=== PATIENT | male | born 1925 | race Caucasian/White ===

== ENCOUNTER 2016-08-21 22:50 | Emergency (ER) | payer MEDICARE, OTHER ==
[2016-08-21] MEDS ORDERED: SODIUM CHLORIDE 0.9% 500 ML IV STA (23:24)
[2016-08-21] MEDS ORDERED: SODIUM CHLORIDE 0.9% 1,000 ML IV STA (23:24)
[2016-08-21] MEDS ORDERED: ONDANSETRON 4 MG/2 ML VIAL IVP STA (23:25)
--- NOTE | 2016-08-21 23:27 | ED ---
Abdominal Pain HPI - General Chief Complaint: Abdominal Pain Stated Complaint: abd pain Time Seen by Provider: 08/21/16 23:15 Source: patient, RN notes reviewed Mode of arrival: wheelchair Limitations: no limitations - History of Present Illness Initial Comments: This is a 89-year-old male history of prior episodes of bowel obstruction and constipation who complains of constipation or last week or so he states he took citrate of magnesium early this morning LAD was passed some liquid. He complains some intermittent crampy abdominal pain nausea sweats generalized weakness he also states she's has some decrease oral intake recently. He denies any rhinorrhea sore throat cough or phlegm production no dysuria MD Complaint: abdominal pain, other - Related Data Home Medications Medication Instructions Recorded Confirmed Ergocalciferol [Vitamin D2 50,000 unit PO Q14D 12/10/14 04/03/16 (DRISDOL)] Ranitidine HCl [Zantac] 300 mg PO QAM 12/10/14 04/03/16 Simvastatin [Zocor] 40 mg PO HS 12/10/14 04/03/16 Hydrocodone/Acetaminophen 1 tab PO Q4H PRN 07/21/15 04/03/16 [Hydrocodon-Acetaminophn 10-325] ALPRAZolam [Xanax] 0.5 mg PO BID PRN 03/24/16 04/03/16 Loratadine-Pseudoeph 10-240 mg 1 tab PO DAILY PRN 03/24/16 04/03/16 [Claritin-D 24 Hr] Meclizine [Antivert] 12.5 mg PO TID PRN 03/24/16 04/03/16 Methadone [Dolophine] 5 mg PO Q12HR 04/01/16 04/03/16 Previous Rx's Medication Instructions Recorded Lactulose 10 gm PO DAILY #500 ml 04/03/16 Allergies Allergy/AdvReac Type Severity Reaction Status Date / Time azithromycin Allergy Intermediate shaky and Verified 08/21/16 23:02 cold, rash and abdominal pain morphine Allergy Intermediate Nausea & Verified 08/21/16 23:02 Vomiting erythromycin base Allergy Mild Rash/Hives Verified 08/21/16 23:02 esomeprazole magnesium Allergy Mild Rash/Hives Verified 08/21/16 23:02 [From Nexium] omeprazole [From Prilosec] Allergy Mild Rash/Hives Verified 08/21/16 23:02 omeprazole magnesium Allergy Mild Rash/Hives Verified 08/21/16 23:02 [From [facility]] Review of Systems ROS Statement: Those systems with pertinent positive or pertinent negative responses have been documented in the HPI. ROS Other: All systems not noted in ROS Statement are negative. Past Medical History Past Medical History: Cancer, GERD/Reflux, GI Bleed, Hyperlipidemia, Musculoskeletal Disorder, Osteoarthritis (OA), Pneumonia Additional Past Medical History / Comment(s): hx bleeding ulcers, non hodgkins lymphoma, chronic low back pain, scoliosis, unsteady gait, dizzyness, GERD, osteoarthritis. History of Any Multi-Drug Resistant Organisms: None Reported Past Surgical History: Adenoidectomy, Back Surgery, Cholecystectomy, Joint Replacement, Orthopedic Surgery, Tonsillectomy Additional Past Surgical History / Comment(s): 12/15/14 Thoracic laminectomy T11 -12 with placement of nerve stimulator. Bilateral cataracts removed with lens implants, nava knee and shoulder replacements, left hand carpal tunnel, rt thumb joint replacement Past Anesthesia/Blood Transfusion Reactions: No Reported Reaction Past Psychological History: Anxiety Additional Psychological History / Comment(s): Pt resides with his spouse. He is independent with his ADLs. He uses a walker or a cane. He does not drive. His drives him to appt. He has no home care agency. Smoking Status: Former smoker Past Alcohol Use History: None Reported Past Drug Use History: None Reported - Past Family History Father Family Medical History: Cancer (Father at age of 71 from bladder cancer) Mother Family Medical History: Myocardial Infarction ([place]) (Mother at age of 59 from myocardial infarction) Brother(s) Family Medical History: Myocardial Infarction ([place]) (Patient had a brother who from an [place]) Sister(s) Family Medical History: No Reported History (Patient has 2 sisters who are alive and no major medical problems) Daughter(s) Family Medical History: No Reported History (Patient has 3 daughters no major medical problems) Son(s) Family Medical History: No Reported History (Patient has one son no major medical problems) General Exam - General Exam Comments Initial Comments: This is a well-developed well-nourished awake alert oriented x 3 male Limitations: no limitations General appearance: alert, in no apparent distress Head exam: Present: atraumatic, normocephalic, normal inspection Eye exam: Present: normal appearance, PERRL, EOMI. Absent: scleral icterus, conjunctival injection, periorbital swelling ENT exam: Present: mucous membranes dry Neck exam: Present: normal inspection. Absent: tenderness, meningismus, lymphadenopathy Respiratory exam: Present: normal lung sounds bilaterally. Absent: respiratory distress, wheezes, rales, rhonchi, stridor Cardiovascular Exam: Present: regular rate, normal rhythm, normal heart sounds. Absent: systolic murmur, diastolic murmur, rubs, gallop, clicks GI/Abdominal exam: Present: soft, normal bowel sounds. Absent: distended, tenderness, guarding, rebound, rigid Extremities exam: Present: normal inspection, full ROM, normal capillary refill. Absent: tenderness, pedal edema, joint swelling, calf tenderness Back exam: Present: normal inspection Neurological exam: Present: alert, oriented X3, CN II-XII intact Psychiatric exam: Present: normal affect, normal mood Skin exam: Present: warm, dry, intact, normal color. Absent: rash Course Vital Signs 08/21/16 08/22/16 23:02 00:02 Temperature 98.9 F 98.2 F Pulse Rate 68 72 Respiratory 16 18 Rate Blood Pressure 131/64 125/66 O2 Sat by Pulse 97 96 Oximetry Medical Decision Making - Medical Decision Making The patient is feeling improved I did discuss findings with him and his the x-ray does not show any evidence of obstruction he has had decreased oral intake recently this is likely part of the cause her his "constipation" he is follow-up with Dr. Hendrix and return when necessary increase his oral fluids results also a suggestion - Lab Data Result diagrams: 08/21/16 23:25 08/21/16 23:25 Lab Results 08/21/16 08/21/16 08/21/16 Range/Units 23:25 23:25 23:54 WBC 6.4 (3.8-10.6) k/uL RBC 4.26 L (4.30-5.90) m/uL Hgb 13.6 (13.0-17.5) gm/dL Hct 41.8 (39.0-53.0) % MCV 98.0 (80.0-100.0) fL MCH 31.9 (25.0-35.0) pg MCHC 32.5 (31.0-37.0) g/dL RDW 13.1 (11.5-15.5) % Plt Count 194 (150-450) k/uL Neutrophils % 64 % Lymphocytes % 26 % Monocytes % 5 % Eosinophils % 2 % Basophils % 1 % Neutrophils # 4.1 (1.3-7.7) k/uL Lymphocytes # 1.7 (1.0-4.8) k/uL Monocytes # 0.3 (0-1.0) k/uL Eosinophils # 0.2 (0-0.7) k/uL Basophils # 0.0 (0-0.2) k/uL Sodium 135 L (137-145) mmol/L Potassium 4.4 (3.5-5.1) mmol/L Chloride 98 (98-107) mmol/L Carbon Dioxide 26 (22-30) mmol/L Anion Gap 11 mmol/L BUN 17 (9-20) mg/dL Creatinine 0.90 (0.66-1.25) mg/dL Est GFR (MDRD) Af Amer >60 (>60 ml/min/1.73 sqM) Est GFR (MDRD) Non-Af >60 (>60 ml/min/1.73 sqM) Glucose 94 (74-99) mg/dL Calcium 9.2 (8.4-10.2) mg/dL Total Bilirubin 0.6 (0.2-1.3) mg/dL AST 41 (17-59) U/L ALT 35 (21-72) U/L Alkaline Phosphatase 71 (38-126) U/L Total Protein 7.3 (6.3-8.2) g/dL Albumin 4.3 (3.5-5.0) g/dL Amylase 49 (30-110) U/L Lipase 19 L (23-300) U/L Urine Color Light Yellow Urine Appearance Clear (Clear) Urine pH 7.0 (5.0-8.0) Ur Specific [place] 1.004 (1.001-1.035) Urine Protein Negative (Negative) Urine Glucose (UA) Negative (Negative) Urine Ketones Trace H (Negative) Urine Blood Trace H (Negative) Urine Nitrite Negative (Negative) Urine Bilirubin Negative (Negative) Urine Urobilinogen <2.0 (<2.0) mg/dL Ur Leukocyte Esterase Negative (Negative) Urine RBC 1 (0-5) /hpf Urine WBC <1 (0-5) /hpf Influenza Type A RNA (Not Detectd) Influenza Type B (PCR) (Not Detectd) 08/21/16 Range/Units 23:55 WBC (3.8-10.6) k/uL RBC (4.30-5.90) m/uL Hgb (13.0-17.5) gm/dL Hct (39.0-53.0) % MCV (80.0-100.0) fL MCH (25.0-35.0) pg MCHC (31.0-37.0) g/dL RDW (11.5-15.5) % Plt Count (150-450) k/uL Neutrophils % % Lymphocytes % % Monocytes % % Eosinophils % % Basophils % % Neutrophils # (1.3-7.7) k/uL Lymphocytes # (1.0-4.8) k/uL Monocytes # (0-1.0) k/uL Eosinophils # (0-0.7) k/uL Basophils # (0-0.2) k/uL Sodium (137-145) mmol/L Potassium (3.5-5.1) mmol/L Chloride (98-107) mmol/L Carbon Dioxide (22-30) mmol/L Anion Gap mmol/L BUN (9-20) mg/dL Creatinine (0.66-1.25) mg/dL Est GFR (MDRD) Af Amer (>60 ml/min/1.73 sqM) Est GFR (MDRD) Non-Af (>60 ml/min/1.73 sqM) Glucose (74-99) mg/dL Calcium (8.4-10.2) mg/dL Total Bilirubin (0.2-1.3) mg/dL AST (17-59) U/L ALT (21-72) U/L Alkaline Phosphatase (38-126) U/L Total Protein (6.3-8.2) g/dL Albumin (3.5-5.0) g/dL Amylase (30-110) U/L Lipase (23-300) U/L Urine Color Urine Appearance (Clear) Urine pH (5.0-8.0) Ur Specific [place] (1.001-1.035) Urine Protein (Negative) Urine Glucose (UA) (Negative) Urine Ketones (Negative) Urine Blood (Negative) Urine Nitrite (Negative) Urine Bilirubin (Negative) Urine Urobilinogen (<2.0) mg/dL Ur Leukocyte Esterase (Negative) Urine RBC (0-5) /hpf Urine WBC (0-5) /hpf Influenza Type A RNA Not Detected (Not Detectd) Influenza Type B (PCR) Not Detected (Not Detectd) - Radiology Data Radiology results: report reviewed (I did review the x-ray and report no acute findings), image reviewed Disposition Clinical Impression: Constipation, Dehydration Disposition: HOME SELF-CARE Condition: Good Instructions: Constipation (ED), Obstipation (ED), Dehydration (ED)
[2016-08-21 23:38] LABS: Basophils % (A) 1 %; CH 31.8; CHCM 32.6; Eosinophils # (A) 0.2 k/uL (0-0.7); Eosinophils % (A) 2 %; HCT 41.8 % (39.0-53.0); HDW 2.11; HGB 13.6 gm/dL (13.0-17.5); Luc # (Auto) 0.16; Luc % (Auto) 3; Lymphocytes # (A) 1.7 k/uL (1.0-4.8); Lymphocytes % (A) 26 %; MCH 31.9 pg (25.0-35.0); MCHC 32.5 g/dL (31.0-37.0); Monocytes # (A) 0.3 k/uL (0-1.0); Monocytes % (A) 5 %; Neutrophils # (A) 4.1 k/uL (1.3-7.7); Neutrophils % (A) 64 %; RBC 4.26 m/uL (4.30-5.90); RDW 13.1 % (11.5-15.5); WBC 6.4 k/uL (3.8-10.6); WBC (Perox) 6.64
[2016-08-21] MEDS ORDERED: KETOROLAC 30 MG/ML 1 ML VIAL IVP STA (23:43)
[2016-08-21 23:45] LABS: ALT 35 U/L (21-72); AST 41 U/L (17-59); Alkaline Phosphatase 71 U/L (38-126); Amylase 49 U/L (30-110); Anion Gap 11 mmol/L; Blood Urea Nitrogen 17 mg/dL (9-20); Calcium 9.2 mg/dL (8.4-10.2); Carbon Dioxide 26 mmol/L (22-30); Chloride 98 mmol/L (98-107); Glucose 94 mg/dL (74-99); Non-African American GFR(MDRD) >60 (>60 ml/min/1.73 sqM); Potassium 4.4 mmol/L (3.5-5.1); Sodium 135 mmol/L (137-145); Total Bilirubin 0.6 mg/dL (0.2-1.3); Total Protein 7.3 g/dL (6.3-8.2)
[2016-08-22] MEDS ORDERED: SODIUM CHLORIDE 0.9% 500 ML IV ONE (00:01)
[2016-08-22 00:03] VITALS: RESP 18
[2016-08-22 00:03] LABS: Appearance,Urine Clear (Clear); Bilirubin,Urine Negative (Negative); Glucose,Urine (UA) Negative (Negative); Ketones,Urine Trace (Negative); Leukocyte Esterase,Urine Negative (Negative); Nitrite,Urine Negative (Negative); Particle Count 478; Protein,Urine Negative (Negative); RBC,Urine 1 /hpf (0-5); Specific Gravity,Urine 1.004 (1.001-1.035); UA Billing (MACRO vs. MICRO) MICRO; Urobilinogen,Urine <2.0 mg/dL (<2.0); WBC,Urine <1 /hpf (0-5)
--- NOTE | 2016-08-22 00:20 | XR ---
EXAM: XR Abdomen, 1 View. CLINICAL HISTORY: Reason: abdominal pain TECHNIQUE: Frontal supine view of the abdomen/pelvis. COMPARISON: [facility] on 04/01/2016 FINDINGS: Abdomen: Nonobstructive bowel gas pattern. Paucity of bowel gas in the left lower quadrant. No free air. Bones: Degenerative changes of the spine and dextroconvex scoliosis. Degenerative changes of the hips. Soft tissues: Epidural spinal catheter with battery pack projected over the left iliac bone. Lower chest: Normal. IMPRESSION: No acute abnormality.
[2016-08-22 01:16] VITALS: BP 121/62; PULSE 78; TEMP 98
== END 2016-08-22 01:16 | disposition home or self-care (01) ==
LOC: EC 22:50
DX: K59.00 Constipation, unspecified (principal); E86.0 Dehydration; R11.0 Nausea; R10.9 Unspecified abdominal pain; K21.9 Gastro-esophageal reflux disease without esophagitis; M19.90 Unspecified osteoarthritis, unspecified site; E78.5 Hyperlipidemia, unspecified; Z87.891 Personal history of nicotine dependence; Z79.899 Other long term (current) drug therapy; Z88.1 Allergy status to other antibiotic agents; Z88.8 Allergy status to other drugs, medicaments and biological substances; Z88.5 Allergy status to narcotic agent; Z90.49 Acquired absence of other specified parts of digestive tract
CPT/HCPCS: 36415; 80053; 82150; 83690; 85025; 81001; 87502; 74000; 99284; 96374; 96375; 96361 ×2; J2405; J1885

== ENCOUNTER 2016-08-30 22:15 | Inpatient (IN) | payer MEDICARE, OTHER ==
[2016-08-30] MEDS ORDERED: SODIUM CHLORIDE 0.9% 500 ML IV STA (22:21)
[2016-08-30] MEDS ORDERED: SODIUM CHLORIDE 0.9% 1,000 ML IV STA (22:21)
[2016-08-30] MEDS ORDERED: ACETAMINOPHEN TAB 325 MG TAB PO STA (22:22)
--- NOTE | 2016-08-30 22:30 | ED ---
Fever HPI - General Chief Complaint: Fever Stated Complaint: fever, nausea Time Seen by Provider: 08/30/16 22:15 Source: patient, RN notes reviewed Mode of arrival: EMS Limitations: no limitations - History of Present Illness Initial Comments: This is a 89-year-old male was brought in by EMS for evaluation for fever generalized weakness and not feeling well he placed some lightheadedness dizziness apparently he is dizzy quite often. His had a similar illness his began this morning. He should decrease oral intake no chest pain he has nausea noted diarrhea no vomiting he is coughing up phlegm but he does not know what color. He does have a history of non-Hodgkin's lymphoma and does have a stimulator for his low back. Per EMS his temporal temperature is 100F initially a pulse ox of 93%. He does admit to decreased oral intake today MD Complaint: fever, malaise, weakness - Related Data Home Medications Medication Instructions Recorded Confirmed Ergocalciferol [Vitamin D2 50,000 unit PO Q14D 12/10/14 08/30/16 (DRISDOL)] Ranitidine HCl [Zantac] 300 mg PO QAM 12/10/14 08/30/16 Simvastatin [Zocor] 40 mg PO HS 12/10/14 08/30/16 Hydrocodone/Acetaminophen 1 tab PO Q4H PRN 07/21/15 08/30/16 [Hydrocodon-Acetaminophn 10-325] ALPRAZolam [Xanax] 0.5 mg PO BID PRN 03/24/16 08/30/16 Loratadine-Pseudoeph 10-240 mg 1 tab PO DAILY PRN 03/24/16 08/30/16 [Claritin-D 24 Hr] Meclizine [Antivert] 12.5 mg PO TID PRN 03/24/16 08/30/16 Methadone [Dolophine] 5 mg PO BID 04/01/16 08/30/16 Allergies Allergy/AdvReac Type Severity Reaction Status Date / Time azithromycin Allergy Intermediate shaky and Verified 08/30/16 23:01 cold, rash and abdominal pain morphine Allergy Intermediate Nausea & Verified 08/30/16 23:01 Vomiting erythromycin base Allergy Mild Rash/Hives Verified 08/30/16 23:01 esomeprazole magnesium Allergy Mild Rash/Hives Verified 08/30/16 23:01 [From Nexium] omeprazole [From Prilosec] Allergy Mild Rash/Hives Verified 08/30/16 23:01 omeprazole magnesium Allergy Mild Rash/Hives Verified 08/30/16 23:01 [From Prilosec] Review of Systems ROS Statement: Those systems with pertinent positive or pertinent negative responses have been documented in the HPI. ROS Other: All systems not noted in ROS Statement are negative. Past Medical History Past Medical History: Cancer, GERD/Reflux, GI Bleed, Hyperlipidemia, Musculoskeletal Disorder, Osteoarthritis (OA), Pneumonia Additional Past Medical History / Comment(s): hx bleeding ulcers, non hodgkins lymphoma, chronic low back pain, scoliosis, unsteady gait, dizzyness, GERD, osteoarthritis. History of Any Multi-Drug Resistant Organisms: None Reported Past Surgical History: Adenoidectomy, Back Surgery, Cholecystectomy, Joint Replacement, Orthopedic Surgery, Tonsillectomy Additional Past Surgical History / Comment(s): 12/15/14 Thoracic laminectomy T11 -12 with placement of nerve stimulator. Bilateral cataracts removed with lens implants, nava knee and shoulder replacements, left hand carpal tunnel, rt thumb joint replacement Past Anesthesia/Blood Transfusion Reactions: No Reported Reaction Past Psychological History: Anxiety Additional Psychological History / Comment(s): Pt resides with his spouse. He is independent with his ADLs. He uses a walker or a cane. He does not drive. His drives him to appt. He has no home care agency. Smoking Status: Former smoker Past Alcohol Use History: None Reported Past Drug Use History: None Reported - Past Family History Father Family Medical History: Cancer (Father at age of 71 from bladder cancer) Mother Family Medical History: Myocardial Infarction ([place]) (Mother at age of 59 from myocardial infarction) Brother(s) Family Medical History: Myocardial Infarction ([place]) (Patient had a brother who from an [place]) Sister(s) Family Medical History: No Reported History (Patient has 2 sisters who are alive and no major medical problems) Daughter(s) Family Medical History: No Reported History (Patient has 3 daughters no major medical problems) Son(s) Family Medical History: No Reported History (Patient has one son no major medical problems) General Exam - General Exam Comments Initial Comments: This is a well-developed well-nourished lethargic appearing male he is awake alert oriented 3 Limitations: no limitations General appearance: alert, in no apparent distress Head exam: Present: atraumatic, normocephalic, normal inspection Eye exam: Present: normal appearance, PERRL, EOMI. Absent: scleral icterus, conjunctival injection, periorbital swelling ENT exam: Present: mucous membranes dry Neck exam: Present: normal inspection. Absent: tenderness, meningismus, lymphadenopathy Respiratory exam: Present: rhonchi (Some evidence of right lower lobe rhonchi), decreased breath sounds Cardiovascular Exam: Present: regular rate, normal rhythm, normal heart sounds. Absent: systolic murmur, diastolic murmur, rubs, gallop, clicks GI/Abdominal exam: Present: soft, normal bowel sounds. Absent: distended, tenderness, guarding, rebound, rigid exam: Absent: circumcision Extremities exam: Present: normal inspection, full ROM, normal capillary refill , other. Absent: tenderness, pedal edema, joint swelling, calf tenderness Back exam: Present: normal inspection Neurological exam: Present: alert, oriented X3, CN II-XII intact Psychiatric exam: Present: normal affect, normal mood Skin exam: Present: warm, dry, intact, normal color. Absent: rash Course Vital Signs 08/30/16 22:19 Temperature 101.6 F H Pulse Rate 95 Respiratory 20 Rate Blood Pressure 150/59 O2 Sat by Pulse 94 L Oximetry - Reevaluation(s) Reevaluation #1: 08/31/16 00:46 Reassessment after the initial evaluation and IV fluids reveals patient still feels very weak. He does state he is been coughing up phlegm. He has had pneumonia and previous occasions at least twice possibly 3 times. Medical Decision Making - Medical Decision Making I did discuss findings with the patient family members. Patient does demonstrate evidence dehydration and acute febrile illness etiology unknown. Due to the patient's history of pneumonia this is not been ruled out as the patient dehydrated. I did discuss the case with Dr. East. Patient be admitted place an IV fluids IV antibiotics and reassessment with x-ray in the morning. - Lab Data Result diagrams: 08/30/16 22:36 08/30/16 22:36 Lab Results 08/30/16 08/30/16 08/30/16 Range/Units 22:36 22:36 22:36 WBC 5.4 (3.8-10.6) k/uL RBC 3.92 L (4.30-5.90) m/uL Hgb 12.6 L (13.0-17.5) gm/dL Hct 37.9 L (39.0-53.0) % MCV 96.7 (80.0-100.0) fL MCH 32.1 (25.0-35.0) pg MCHC 33.2 (31.0-37.0) g/dL RDW 13.3 (11.5-15.5) % Plt Count 168 (150-450) k/uL Neutrophils % 80 % Lymphocytes % 11 % Monocytes % 6 % Eosinophils % 2 % Basophils % 1 % Neutrophils # 4.3 (1.3-7.7) k/uL Lymphocytes # 0.6 L (1.0-4.8) k/uL Monocytes # 0.3 (0-1.0) k/uL Eosinophils # 0.1 (0-0.7) k/uL Basophils # 0.0 (0-0.2) k/uL Sodium 129 L (137-145) mmol/L Potassium 4.1 (3.5-5.1) mmol/L Chloride 92 L (98-107) mmol/L Carbon Dioxide 28 (22-30) mmol/L Anion Gap 9 mmol/L BUN 10 (9-20) mg/dL Creatinine 0.81 (0.66-1.25) mg/dL Est GFR (MDRD) Af Amer >60 (>60 ml/min/1.73 sqM) Est GFR (MDRD) Non-Af >60 (>60 ml/min/1.73 sqM) Glucose 97 (74-99) mg/dL Plasma Lactic Acid Magdi (0.7-2.0) mmol/L Calcium 9.1 (8.4-10.2) mg/dL Magnesium 1.9 (1.6-2.3) mg/dL Total Bilirubin 0.5 (0.2-1.3) mg/dL AST 33 (17-59) U/L ALT 26 (21-72) U/L Alkaline Phosphatase 67 (38-126) U/L Total Creatine Kinase 84 (55-170) U/L CK-MB (CK-2) 1.1 (0.0-2.4) ng/mL CK-MB (CK-2) Rel Index 1.3 Total Protein 6.9 (6.3-8.2) g/dL Albumin 4.1 (3.5-5.0) g/dL Urine Color Urine Appearance (Clear) Urine pH (5.0-8.0) Ur Specific [place] (1.001-1.035) Urine Protein (Negative) Urine Glucose (UA) (Negative) Urine Ketones (Negative) Urine Blood (Negative) Urine Nitrite (Negative) Urine Bilirubin (Negative) Urine Urobilinogen (<2.0) mg/dL Ur Leukocyte Esterase (Negative) Urine RBC (0-5) /hpf Urine WBC (0-5) /hpf Influenza Type A RNA (Not Detectd) Influenza Type B (PCR) (Not Detectd) 08/30/16 08/30/16 08/30/16 Range/Units 22:36 22:36 23:55 WBC (3.8-10.6) k/uL RBC (4.30-5.90) m/uL Hgb (13.0-17.5) gm/dL Hct (39.0-53.0) % MCV (80.0-100.0) fL MCH (25.0-35.0) pg MCHC (31.0-37.0) g/dL RDW (11.5-15.5) % Plt Count (150-450) k/uL Neutrophils % % Lymphocytes % % Monocytes % % Eosinophils % % Basophils % % Neutrophils # (1.3-7.7) k/uL Lymphocytes # (1.0-4.8) k/uL Monocytes # (0-1.0) k/uL Eosinophils # (0-0.7) k/uL Basophils # (0-0.2) k/uL Sodium (137-145) mmol/L Potassium (3.5-5.1) mmol/L Chloride (98-107) mmol/L Carbon Dioxide (22-30) mmol/L Anion Gap mmol/L BUN (9-20) mg/dL Creatinine (0.66-1.25) mg/dL Est GFR (MDRD) Af Amer (>60 ml/min/1.73 sqM) Est GFR (MDRD) Non-Af (>60 ml/min/1.73 sqM) Glucose (74-99) mg/dL Plasma Lactic Acid Magdi 0.7 (0.7-2.0) mmol/L Calcium (8.4-10.2) mg/dL Magnesium (1.6-2.3) mg/dL Total Bilirubin (0.2-1.3) mg/dL AST (17-59) U/L ALT (21-72) U/L Alkaline Phosphatase (38-126) U/L Total Creatine Kinase (55-170) U/L CK-MB (CK-2) (0.0-2.4) ng/mL CK-MB (CK-2) Rel Index Total Protein (6.3-8.2) g/dL Albumin (3.5-5.0) g/dL Urine Color Light Yellow Urine Appearance Clear (Clear) Urine pH 7.5 (5.0-8.0) Ur Specific [place] 1.010 (1.001-1.035) Urine Protein Negative (Negative) Urine Glucose (UA) Negative (Negative) Urine Ketones 1+ H (Negative) Urine Blood Trace H (Negative) Urine Nitrite Negative (Negative) Urine Bilirubin Negative (Negative) Urine Urobilinogen <2.0 (<2.0) mg/dL Ur Leukocyte Esterase Negative (Negative) Urine RBC 15 H (0-5) /hpf Urine WBC <1 (0-5) /hpf Influenza Type A RNA Not Detected (Not Detectd) Influenza Type B (PCR) Not Detected (Not Detectd) - EKG Data -: EKG Interpreted by [facility] EKG shows normal: sinus rhythm (Sinus rhythm with a rate of 90 RI interval 144 QRS duration 98 daily since QTC of 356/435 evidence of incomplete right bundle- branch block left anterior fascicular block unifocal PVC is noted) - Radiology Data Radiology results: report reviewed (I did review the x-ray and report no definite acute processes), image reviewed Disposition Clinical Impression: Febrile illness, acute, Dehydration, Pneumonitis Disposition: ADMITTED IP TO THIS HOSP Condition: Stable
[2016-08-30 22:51] LABS: Basophils % (A) 1 %; CH 31.8; Eosinophils # (A) 0.1 k/uL (0-0.7); Eosinophils % (A) 2 %; HCT 37.9 % (39.0-53.0); HDW 2.06; HGB 12.6 gm/dL (13.0-17.5); Luc # (Auto) 0.08; Luc % (Auto) 1; Lymphocytes # (A) 0.6 k/uL (1.0-4.8); Lymphocytes % (A) 11 %; MCH 32.1 pg (25.0-35.0); MCHC 33.2 g/dL (31.0-37.0); MCV 96.7 fL (80.0-100.0); Mean Platelet Volume 7.1; Monocytes # (A) 0.3 k/uL (0-1.0); Monocytes % (A) 6 %; Neutrophils # (A) 4.3 k/uL (1.3-7.7); Neutrophils % (A) 80 %; RBC 3.92 m/uL (4.30-5.90); RDW 13.3 % (11.5-15.5); WBC 5.4 k/uL (3.8-10.6); WBC (Perox) 5.54
[2016-08-30 23:04] LABS: ALT 26 U/L (21-72); AST 33 U/L (17-59); Alkaline Phosphatase 67 U/L (38-126); Anion Gap 9 mmol/L; Blood Urea Nitrogen 10 mg/dL (9-20); Calcium 9.1 mg/dL (8.4-10.2); Carbon Dioxide 28 mmol/L (22-30); Chloride 92 mmol/L (98-107); Glucose 97 mg/dL (74-99); Magnesium 1.9 mg/dL (1.6-2.3); Non-African American GFR(MDRD) >60 (>60 ml/min/1.73 sqM); Potassium 4.1 mmol/L (3.5-5.1); Sodium 129 mmol/L (137-145); Total Bilirubin 0.5 mg/dL (0.2-1.3); Total Protein 6.9 g/dL (6.3-8.2)
--- NOTE | 2016-08-30 23:21 | XR ---
History: Reason: cough Exam: XR CXR 2 VIEWS Comparison: 04/03/2016 and 12/04/2014 FINDINGS: The lungs appear unchanged again with appearance of possible areas of pleural plaques. The cardiac and mediastinal contours appear unchanged. Bilateral shoulder replacements noted. There is now an intraspinal stimulator device present. IMPRESSION: No evidence of acute disease. The lungs appear unchanged again with appearance of possible areas of pleural plaques. Bilateral shoulder replacements noted. There is now an intraspinal stimulator device present.
[2016-08-30 23:29] LABS: Creatine Kinase MB 1.1 ng/mL (0.0-2.4)
[2016-08-31 00:05] LABS: Appearance,Urine Clear (Clear); Bilirubin,Urine Negative (Negative); Glucose,Urine (UA) Negative (Negative); Ketones,Urine 1+ (Negative); Leukocyte Esterase,Urine Negative (Negative); Nitrite,Urine Negative (Negative); PH, Urine 7.5 (5.0-8.0); Particle Count 652; Protein,Urine Negative (Negative); RBC,Urine 15 /hpf (0-5); UA Billing (MACRO vs. MICRO) MICRO; Urobilinogen,Urine <2.0 mg/dL (<2.0); WBC,Urine <1 /hpf (0-5)
[2016-08-31] MEDS ORDERED: LEVOFLOXACIN 750MG-D5W PMX 750 MG in DEXTROSE/WATER 1 150ML.BAG IVPB STA (00:46)
[2016-08-31] MEDS ORDERED: PNEUMONIA PROTOCOL UTILIZED 1 EACH MISC PO PRN (00:49)
[2016-08-31] MEDS ORDERED: LORATADINE-PSEUDOEPH 5-120 MG 1 EACH TAB.ER.12H PO PRN (00:50)
[2016-08-31] MEDS ORDERED: MECLIZINE 12.5 MG TAB PO PRN (00:50)
[2016-08-31] MEDS ORDERED: HYDROcodone/APAP 10-325MG 1 EACH TAB PO PRN (00:50)
[2016-08-31] MEDS ORDERED: ALPRAZolam 0.5 MG TAB PO PRN (00:50)
[2016-08-31] MEDS ORDERED: ERGOCALCIFEROL 50,000 UNIT CAP PO SCH (01:00)
[2016-08-31] MEDS: SODIUM CHLORIDE 0.9% 1,000 ML IV SCH ×3 (01:25→21:13)
[2016-08-31 01:58] VITALS: BMI 18.4
[2016-08-31] MEDS: ACETAMINOPHEN TAB 325 MG TAB PO SCH ×4 (06:38→23:35)
--- NOTE | 2016-08-31 08:04 | XR ---
EXAMINATION TYPE: XR chest 2V DATE OF EXAM: 08/31/2016 7:34 AM COMPARISON: Chest x-ray from yesterday. HISTORY: Chest pain. TECHNIQUE: Frontal and lateral views of the chest are obtained. FINDINGS: There is chronic emphysematous change with calcified pleural plaques bilaterally and scatt ered fibrosis. There is no new suspicious focal air space opacity, pleural effusion, or pneumothorax seen. The cardiac silhouette size is stable and upper limits of normal with atherosclerotic and ecta tic thoracic aorta. The osseous structures are demineralized. Surgical changes bilateral shoulders are present. Old fracture deformity right clavicle is redemonstrated. Spinal stimulator device in the lower thoracic spinal canal is redemonstrated. Cholecystectomy clips are noted on lateral view. IMPRESSION: Chronic parenchymal changes without new acute pulmonary process.
[2016-08-31] MEDS: FAMOTIDINE 20 MG TAB PO SCH (08:58)
[2016-08-31] MEDS: METHADONE 5 MG TAB PO SCH ×2 (08:58→21:13)
[2016-08-31] MEDS: ATORVASTATIN 20 MG TAB PO SCH (21:13)
[2016-09-01] MEDS: ACETAMINOPHEN TAB 325 MG TAB PO SCH ×3 (05:47→18:27)
[2016-09-01 08:19] LABS: Basophils % (A) 0 %; CH 31.7; CHCM 31.9; Eosinophils % (A) 1 %; HCT 37.2 % (39.0-53.0); HDW 2.02; HGB 11.7 gm/dL (13.0-17.5); Luc # (Auto) 0.16; Luc % (Auto) 3; Lymphocytes # (A) 1.8 k/uL (1.0-4.8); Lymphocytes % (A) 39 %; MCH 31.6 pg (25.0-35.0); MCHC 31.6 g/dL (31.0-37.0); Mean Platelet Volume 7.2; Monocytes # (A) 0.4 k/uL (0-1.0); Monocytes % (A) 8 %; Neutrophils # (A) 2.3 k/uL (1.3-7.7); Neutrophils % (A) 49 %; RBC 3.72 m/uL (4.30-5.90); RDW 13.4 % (11.5-15.5); WBC 4.6 k/uL (3.8-10.6); WBC (Perox) 4.83
[2016-09-01 08:35] LABS: ALT 31 U/L (21-72); AST 31 U/L (17-59); Alkaline Phosphatase 52 U/L (38-126); Anion Gap 8 mmol/L; Blood Urea Nitrogen 10 mg/dL (9-20); Calcium 8.6 mg/dL (8.4-10.2); Carbon Dioxide 28 mmol/L (22-30); Chloride 100 mmol/L (98-107); Glucose 93 mg/dL (74-99); Non-African American GFR(MDRD) >60 (>60 ml/min/1.73 sqM); Potassium 4.1 mmol/L (3.5-5.1); Sodium 136 mmol/L (137-145); Total Bilirubin 0.3 mg/dL (0.2-1.3); Total Protein 6.2 g/dL (6.3-8.2)
[2016-09-01] MEDS: LEVOFLOXACIN 750 MG TAB PO SCH (08:55)
[2016-09-01] MEDS: METHADONE 5 MG TAB PO SCH ×2 (08:55→20:45)
[2016-09-01] MEDS: FAMOTIDINE 20 MG TAB PO SCH (08:56)
--- NOTE | 2016-09-01 14:28 | FL ---
EXAMINATION TYPE: FL barium swallow w video DATE OF EXAM: 09/01/2016 2:23 PM COMPARISON: NONE HISTORY: Dysphasia TECHNIQUE: Fluoroscopy. FINDINGS: Fluoroscopic guidance was provided for the procedure performed in conjunction with the [facility] [place] pathology department. Please see complete report forthcoming from the Speech Pathology departmen t. Various consistencies from thin liquid to solids were administered. Aspiration occurred with honey thick liquids. Penetration to level of vocal cords limited with thick liquids. Moderate pooling in the vallecula and piriform sinuses evident during the examination. There is delayed swallowing and delayed propulsion through the hypopharynx. IMPRESSION: 1. Aspiration with thick liquids. 2. Deep penetration with nectar thick liquids. 3. Delay in swallowing and propulsion and pooling noted within the vallecula and piriform sinuses
--- NOTE | 2016-09-01 16:11 | P.HPIM ---
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 with a previous medical history significant for Hodgkin lymphoma about 10 years ago status post chemotherapy, hyperlipidemia, GERD, history of the peptic ulcer disease, complicated by bleeding, chronic low back pain secondary to degenerative disc disease of the thoracic and lumbar spine status post spinal stimulator placement , patient presented to the emergency department at [facility] because of fever dizziness, patient was sick for approximately one day he has had fever 100.5-101, cough with phlegm, orthostasis, apparently the is similarly sick without the fever , patient denies any diarrhea he is chronically constipated, no prior consultation for this problem he was subsequently admitted to the hospital secondary to the hypotension and the lightheadedness and no fever. Sepsis is in the differential however urine Allises and chest x-ray on the evaluation is unremarkable, influenza test is performed and is negative. He does have chronic pain without any changes in his discomfort, no recent foreign travels, no trauma, no ongoing chemotherapy,. He was admitted to the emergency room secondary to hypotension fever and sepsis Review of Systems All systems: negative Constitutional: Reports fatigue, Reports fever, Denies as per HPI, Denies anorexia, Denies chills, Denies chronic headaches, Denies chronic pain, Denies daytime sleepiness, Denies lethargy, Denies malaise, Denies night sweats, Denies poor appetite, Denies sweats, Denies weakness, Denies weight gain, Denies weight loss Ears: deny: tinnitus Ears, nose, mouth and throat: Reports as per HPI, Reports mouth pain, Reports sore throat Cardiovascular: Reports as per HPI, Reports lightheadedness, Denies chest pain, Denies claudication, Denies decreased exercise tolerance, Denies dyspnea on exertion, Denies edema, Denies high blood pressure, Denies irregular heart beat , Denies leg edema, Denies orthopnea, Denies palpitations, Denies paroxysmal nocturnal dyspnea, Denies phlebitis, Denies rapid heart beat, Denies shortness of breath, Denies syncope Respiratory: Reports as per HPI, Reports cough, Denies congestion, Denies cough with sputum, Denies dyspnea, Denies excessive sputum, Denies hemoptysis, Denies home oxygen, Denies pain, Denies pain on inspiration, Denies pleurisy, Denies respiratory infections, Denies sleep apnea, Denies snoring, Denies wheezing Gastrointestinal: Reports as per HPI, Denies abdominal pain, Denies belching, Denies bloating, Denies BRBPR, Denies change in bowel habits, Denies coffee ground emesis, Denies constipation, Denies diarrhea, Denies dyspepsia, Denies early satiety, Denies excessive gas, Denies heartburn, Denies hematemesis, Denies hematochezia, Denies indigestion, Denies jaundice, Denies lactose intolerance, Denies loss of appetite, Denies melena, Denies nausea, Denies vomiting Genitourinary: Reports as per HPI, Denies decreased libido, Denies difficulties fathering child, Denies discharge, Denies dysuria, Denies erectile dysfunction, Denies flank pain, Denies genital pain, Denies genital sores, Denies hematuria, Denies impotence, Denies incontinence, Denies kidney stones, Denies nocturia, Denies polyuria, Denies testicular lump, Denies testicular pain, Denies urinary frequency, Denies urinary hesitancy, Denies urinary retention Musculoskeletal: Reports as per HPI, Denies arm numbness/tingling, Denies atrophy, Denies fractures, Denies frequent falls, Denies gait dysfunction, Denies hot joints, Denies leg numbness/tingling, Denies limitation of motion, Denies loss of height, Denies low back pain, Denies morning stiffness, Denies muscle cramps, Denies muscle weakness, Denies myalgias, Denies neck pain, Denies neck stiffness, Denies prior amputations, Denies redness of joints, Denies shooting arm pain, Denies shooting leg pain Integumentary: Reports as per HPI, Denies acne, Denies boils, Denies brittle nails, Denies change in hair/nails, Denies color changes, Denies darkening of skin, Denies depigmentation, Denies dryness, Denies foot/leg ulcers, Denies growths, Denies hirsutism, Denies lesions, Denies onychomycosis, Denies pruritus , Denies rash, Denies sores, Denies striae, Denies unusual bruising, Denies wounds Neurological: Reports as per HPI, Denies aphasia, Denies ataxia, Denies balance difficulties, Denies burning pain, Denies change in mentation, Denies change in smell/taste, Denies change in speech, Denies confusion, Denies convulsions, Denies double vision, Denies gait dysfunction, Denies head injury, Denies headaches, Denies hearing difficulties, Denies lack of coordination, Denies loss of vision, Denies memory loss, Denies migraines, Denies motor disturbance, Denies numbness, Denies paralysis, Denies paresthesias, Denies seizures, Denies sensory deficit, Denies spasticity, Denies syncope, Denies tic, Denies tingling , Denies transient paralysis, Denies tremors, Denies vertigo, Denies weakness, Denies visual changes Psychiatric: Reports as per HPI, Denies anhedonia, Denies anxiety, Denies anxiety attacks, Denies change in appetite, Denies change in libido, Denies change in sleep habits, Denies confusion, Denies depression, Denies difficulty concentrating, Denies disorientation, Denies hallucinations, Denies hopelessness , Denies hypersomnia, Denies insomnia, Denies irritability, Denies memory loss, Denies mood swings, Denies paranoia, Denies sadness/tearfulness, Denies sleep disturbances, Denies suicidal ideation Endocrine: Reports as per HPI, Denies cold intolerance, Denies deepening of the voice, Denies excessive sweating, Denies excessive thirst, Denies fatigue, Denies flushing, Denies heat intolerance, Denies high blood sugars, Denies increase in ring/shoe/hat size, Denies low blood sugars, Denies nocturia, Denies palpitations, Denies polydipsia, Denies polyphagia, Denies polyuria, Denies proptosis, Denies recent glucocorticoid use, Denies thyroid mass, Denies weight change Hematologic/Lymphatic: Reports as per HPI, Denies easy bleeding, Denies easy bruising, Denies lymphadenopathy, Denies lymphedema, Denies thrombophilia Allergic/Immunologic: Reports as per HPI Past Medical History Past Medical History: Cancer, GERD/Reflux, GI Bleed, Hyperlipidemia, Musculoskeletal Disorder, Osteoarthritis (OA), Pneumonia Additional Past Medical History / Comment(s): hx bleeding ulcers, non hodgkins lymphoma, chronic low back pain, scoliosis, unsteady gait, dizzyness, GERD, osteoarthritis. History of Any Multi-Drug Resistant Organisms: None Reported Past Surgical History: Adenoidectomy, Back Surgery, Cholecystectomy, Joint Replacement, Orthopedic Surgery, Tonsillectomy Additional Past Surgical History / Comment(s): 12/15/14 Thoracic laminectomy T11 -12 with placement of nerve stimulator. Bilateral cataracts removed with lens implants, nava knee and shoulder replacements, left hand carpal tunnel, rt thumb joint replacement Past Anesthesia/Blood Transfusion Reactions: No Reported Reaction Past Psychological History: Anxiety Additional Psychological History / Comment(s): Pt resides with his spouse. He is independent with his ADLs. He uses a walker or a cane. He does not drive. His drives him to appt. He has no home care agency. Smoking Status: Former smoker Past Alcohol Use History: None Reported Past Drug Use History: None Reported - Past Family History Father Family Medical History: Cancer Mother Family Medical History: Myocardial Infarction ([place]) Brother(s) Family Medical History: Myocardial Infarction ([place]) Sister(s) Family Medical History: No Reported History Daughter(s) Family Medical History: No Reported History Son(s) Family Medical History: No Reported History Medications and Allergies Home Medications Medication Instructions Recorded Confirmed Type Ergocalciferol [Vitamin D2 50,000 unit PO Q14D 12/10/14 08/30/16 History (DRISDOL)] Ranitidine HCl [Zantac] 300 mg PO QAM 12/10/14 08/30/16 History Simvastatin [Zocor] 40 mg PO HS 12/10/14 08/30/16 History Hydrocodone/Acetaminophen 1 tab PO Q4H PRN 07/21/15 08/30/16 History [Hydrocodon-Acetaminophn 10-325] ALPRAZolam [Xanax] 0.5 mg PO BID PRN 03/24/16 08/30/16 History Loratadine-Pseudoeph 10-240 mg 1 tab PO DAILY PRN 03/24/16 08/30/16 History [Claritin-D 24 Hr] Meclizine [Antivert] 12.5 mg PO TID PRN 03/24/16 08/30/16 History Methadone [Dolophine] 5 mg PO BID 04/01/16 08/30/16 History Allergies Allergy/AdvReac Type Severity Reaction Status Date / Time azithromycin Allergy Intermediate shaky and Verified 08/30/16 23:01 cold, rash and abdominal pain morphine Allergy Intermediate Nausea & Verified 08/30/16 23:01 Vomiting erythromycin base Allergy Mild Rash/Hives Verified 08/30/16 23:01 esomeprazole magnesium Allergy Mild Rash/Hives Verified 08/30/16 23:01 [From Nexium] omeprazole [From Prilosec] Allergy Mild Rash/Hives Verified 08/30/16 23:01 omeprazole magnesium Allergy Mild Rash/Hives Verified 08/30/16 23:01 [From Prilosec] Physical Exam Vitals: Vital Signs Temp Pulse Resp BP Pulse Ox 08/31/16 16:00 63 08/31/16 15:00 98.8 F 64 16 119/59 95 Intake and Output 08/31/16 08/31/16 08/31/16 06:59 14:59 22:59 Other: Voiding Method Toilet - Constitutional General appearance: cooperative, no acute distress - EENT Eyes: no abnormal pupil, anicteric sclerae, no disc margins sharp, no edentulous , EOMI, PERRLA, no fundus normal, no photophobia, dentition normal, no poor dentition, no ptosis, no scleral icterus, normal appearance ENT: no hard of hearing, hearing grossly normal, NA/AT, normal oropharynx, no other, no pharyngeal erythema, no thrush, no tonsillar exudates, no tonsillar swelling - Neck Neck: normal ROM Thyroid: bilateral: normal size, negative: enlarged, firm, nodule - Respiratory Respiratory: bilateral: CTA, negative: diminished, dullness, rales, rhonchi, wheezing, prolonged expiration - Cardiovascular Rhythm: regular Heart sounds: normal: S1, S2 Abnormal Heart Sounds: no systolic murmur, no diastolic murmur, no rub, no S3 Gallop, no S4 Gallop, no click, no other - Gastrointestinal General gastrointestinal: normal bowel sounds, soft - Integumentary Integumentary: normal, normal turgor - Neurologic Neurologic: CNII-XII intact - Musculoskeletal Musculoskeletal: gait normal, strength equal bilaterally - Psychiatric Psychiatric: A&O x's 3, appropriate affect, intact judgment & insight Results CBC & Chem 7: 08/30/16 22:36 08/30/16 22:36 Labs: Laboratory Results WBC 5.4 k/uL (3.8-10.6) 08/30/16 22:36 RBC 3.92 m/uL (4.30-5.90) L 08/30/16 22:36 Hgb 12.6 gm/dL (13.0-17.5) L 08/30/16 22:36 Hct 37.9 % (39.0-53.0) L 08/30/16 22:36 MCV 96.7 fL (80.0-100.0) 08/30/16 22:36 MCH 32.1 pg (25.0-35.0) 08/30/16 22:36 MCHC 33.2 g/dL (31.0-37.0) 08/30/16 22:36 RDW 13.3 % (11.5-15.5) 08/30/16 22:36 Plt Count 168 k/uL (150-450) 08/30/16 22:36 Neutrophils % 80 % 08/30/16 22:36 Lymphocytes % 11 % 08/30/16 22:36 Monocytes % 6 % 08/30/16 22:36 Eosinophils % 2 % 08/30/16 22:36 Basophils % 1 % 08/30/16 22:36 Neutrophils # 4.3 k/uL (1.3-7.7) 08/30/16 22:36 Lymphocytes # 0.6 k/uL (1.0-4.8) L 08/30/16 22:36 Monocytes # 0.3 k/uL (0-1.0) 08/30/16 22:36 Eosinophils # 0.1 k/uL (0-0.7) 08/30/16 22:36 Basophils # 0.0 k/uL (0-0.2) 08/30/16 22:36 Sodium 129 mmol/L (137-145) L 08/30/16 22:36 Potassium 4.1 mmol/L (3.5-5.1) 08/30/16 22:36 Chloride 92 mmol/L (98-107) L 08/30/16 22:36 Carbon Dioxide 28 mmol/L (22-30) 08/30/16 22:36 Anion Gap 9 mmol/L 08/30/16 22:36 BUN 10 mg/dL (9-20) 08/30/16 22:36 Creatinine 0.81 mg/dL (0.66-1.25) 08/30/16 22:36 Est GFR (MDRD) Af Amer >60 (>60 ml/min/1.73 sqM) 08/30/16 22:36 Est GFR (MDRD) Non-Af >60 (>60 ml/min/1.73 sqM) 08/30/16 22:36 Glucose 97 mg/dL (74-99) 08/30/16 22:36 Plasma Lactic Acid Magdi 0.7 mmol/L (0.7-2.0) 08/30/16 22:36 Calcium 9.1 mg/dL (8.4-10.2) 08/30/16 22:36 Magnesium 1.9 mg/dL (1.6-2.3) 08/30/16 22:36 Total Bilirubin 0.5 mg/dL (0.2-1.3) 08/30/16 22:36 AST 33 U/L (17-59) 08/30/16 22:36 ALT 26 U/L (21-72) 08/30/16 22:36 Alkaline Phosphatase 67 U/L (38-126) 08/30/16 22:36 Total Creatine Kinase 84 U/L (55-170) 08/30/16 22:36 CK-MB (CK-2) 1.1 ng/mL (0.0-2.4) 08/30/16 22:36 CK-MB (CK-2) Rel Index 1.3 08/30/16 22:36 Total Protein 6.9 g/dL (6.3-8.2) 08/30/16 22:36 Albumin 4.1 g/dL (3.5-5.0) 08/30/16 22:36 Urine Color Light Yellow 08/30/16 23:55 Urine Appearance Clear (Clear) 08/30/16 23:55 Urine pH 7.5 (5.0-8.0) 08/30/16 23:55 Ur Specific [place] 1.010 (1.001-1.035) 08/30/16 23:55 Urine Protein Negative (Negative) 08/30/16 23:55 Urine Glucose (UA) Negative (Negative) 08/30/16 23:55 Urine Ketones 1+ (Negative) H 08/30/16 23:55 Urine Blood Trace (Negative) H 08/30/16 23:55 Urine Nitrite Negative (Negative) 08/30/16 23:55 Urine Bilirubin Negative (Negative) 08/30/16 23:55 Urine Urobilinogen <2.0 mg/dL (<2.0) 08/30/16 23:55 Ur Leukocyte Esterase Negative (Negative) 08/30/16 23:55 Urine RBC 15 /hpf (0-5) H 08/30/16 23:55 Urine WBC <1 /hpf (0-5) 08/30/16 23:55 Influenza Type A RNA Not Detected (Not Detectd) 08/30/16 22:36 Influenza Type B (PCR) Not Detected (Not Detectd) 08/30/16 22:36 Thrombosis Risk Factor Assmnt - Choose All That Apply Any of the Below Risk Factors Present?: No Other Risk Factors: Yes Each Risk Factor Represents 3 Points: Age 75 years or older Other congenital or acquired thrombophilia - If yes, enter type in comment: No Thrombosis Risk Factor Assessment Total Risk Factor Score: 3 Thrombosis Risk Factor Assessment Level: Moderate Risk Assessment and Plan Plan: 1. Febrile illness with hypotension, no GI losses noted at this time, Computed tomography scan differential, patient was provided with IV fluids for fluid resuscitation, cultures have been sent, patient was started on IV Levaquin. Cortisol level will be obtained, as he does have chronic dizziness requiring meclizine, orthostatics to be done to evaluate for adrenal sufficiency 2. Hyponatremia, possibly related to poor oral intake, this would be monitored, 2. Hyperlipidemia. on lipitor 3. Chronic pain syndrome. on methadone and norcoand pain stimulator 4. Vitamin D deficiency. on Drisdol supplementation 5. GERD. Protonix 40 mg IV push every 24 hours. 6. History of non-Hodgkin lymphoma over 10 years ago. In remission. 7. History of bleeding peptic ulcer disease, inactive. Continue PPI. 8. DVT prophylaxis. Heparin 5000 units subcutaneously every 12 hours. 9. GI prophylaxis. Continue Protonix 40 mg IV push every 24 hours.
[2016-09-01] MEDS: SODIUM CHLORIDE 0.9% 1,000 ML IV SCH (19:28)
[2016-09-01] MEDS: ATORVASTATIN 20 MG TAB PO SCH (20:45)
[2016-09-02] MEDS: ACETAMINOPHEN TAB 325 MG TAB PO SCH ×3 (05:23→11:48)
[2016-09-02 08:21] LABS: Basophils % (A) 0 %; CH 32.1; CHCM 33.2; Eosinophils # (A) 0.1 k/uL (0-0.7); Eosinophils % (A) 2 %; HCT 37.9 % (39.0-53.0); HGB 12.8 gm/dL (13.0-17.5); Luc # (Auto) 0.23; Luc % (Auto) 4; Lymphocytes # (A) 2.2 k/uL (1.0-4.8); Lymphocytes % (A) 40 %; MCH 32.7 pg (25.0-35.0); MCHC 33.6 g/dL (31.0-37.0); MCV 97.1 fL (80.0-100.0); Mean Platelet Volume 7.1; Monocytes # (A) 0.4 k/uL (0-1.0); Monocytes % (A) 7 %; Neutrophils # (A) 2.6 k/uL (1.3-7.7); Neutrophils % (A) 47 %; RBC 3.91 m/uL (4.30-5.90); RDW 12.9 % (11.5-15.5); WBC 5.5 k/uL (3.8-10.6); WBC (Perox) 5.87
[2016-09-02 08:24] VITALS: BP 137/72; PULSE 55; RESP 16; TEMP 97.8
[2016-09-02 08:34] LABS: ALT 33 U/L (21-72); AST 36 U/L (17-59); Alkaline Phosphatase 57 U/L (38-126); Anion Gap 8 mmol/L; Blood Urea Nitrogen 12 mg/dL (9-20); Carbon Dioxide 28 mmol/L (22-30); Chloride 101 mmol/L (98-107); Glucose 92 mg/dL (74-99); Non-African American GFR(MDRD) >60 (>60 ml/min/1.73 sqM); Potassium 4.2 mmol/L (3.5-5.1); Sodium 137 mmol/L (137-145); Total Bilirubin 0.4 mg/dL (0.2-1.3); Total Protein 6.5 g/dL (6.3-8.2)
[2016-09-02] MEDS: FAMOTIDINE 20 MG TAB PO SCH (08:51)
[2016-09-02] MEDS: LEVOFLOXACIN 750 MG TAB PO SCH (08:52)
[2016-09-02] MEDS: METHADONE 5 MG TAB PO SCH (08:59)
[2016-09-02] MEDS ORDERED: MAGNESIUM HYDROXIDE 2,400 MG/10 ML CUP PO PRN (09:17)
--- NOTE | 2016-09-02 10:47 | P.PN ---
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 with a previous medical history significant for Hodgkin lymphoma about 10 years ago status post chemotherapy, hyperlipidemia, GERD, history of the peptic ulcer disease, complicated by bleeding, chronic low back pain secondary to degenerative disc disease of the thoracic and lumbar spine status post spinal stimulator placement , patient presented to the emergency department at [facility] because of fever dizziness, patient was sick for approximately one day he has had fever 100.5-101, cough with phlegm, orthostasis, apparently the is similarly sick without the fever , patient denies any diarrhea he is chronically constipated, no prior consultation for this problem he was subsequently admitted to the hospital secondary to the hypotension and the lightheadedness and no fever. Sepsis is in the differential however urine Allises and chest x-ray on the evaluation is unremarkable, influenza test is performed and is negative. He does have chronic pain without any changes in his discomfort, no recent foreign travels, no trauma, no ongoing chemotherapy,. He was admitted to the emergency room secondary to hypotension fever and sepsis 09/01: Repeat chest x-ray shows chronic parenchymal changes without new acute pulmonary process. Blood cultures showing no growth at 24 hours. No leukocytosis. Objective - Vital Signs Vital signs: Vital Signs Temp 97.8 F 09/01/16 08:00 Pulse 73 09/01/16 08:00 Resp 18 09/01/16 08:00 BP 108/56 09/01/16 07:00 Pulse Ox 98 09/01/16 08:00 Intake & Output 08/31/16 09/01/16 09/01/16 18:59 06:59 18:59 Intake Total 590 Balance 590 Weight 53.524 kg Intake: Oral 590 Other: Voiding Method Toilet Toilet # Voids 1 - Exam General appearance: cooperative, no acute distress - EENT Eyes: no abnormal pupil, anicteric sclerae, no disc margins sharp, no edentulous , EOMI, PERRLA, no fundus normal, no photophobia, dentition normal, no poor dentition, no ptosis, no scleral icterus, normal appearance ENT: no hard of hearing, hearing grossly normal, NA/AT, normal oropharynx, no other, no pharyngeal erythema, no thrush, no tonsillar exudates, no tonsillar swelling - Neck Neck: normal ROM Thyroid: bilateral: normal size, negative: enlarged, firm, nodule - Respiratory Respiratory: bilateral: CTA, negative: diminished, dullness, rales, rhonchi, wheezing, prolonged expiration - Cardiovascular Rhythm: regular Heart sounds: normal: S1, S2 Abnormal Heart Sounds: no systolic murmur, no diastolic murmur, no rub, no S3 Gallop, no S4 Gallop, no click, no other - Gastrointestinal General gastrointestinal: normal bowel sounds, soft - Integumentary Integumentary: normal, normal turgor - Neurologic Neurologic: CNII-XII intact - Musculoskeletal Musculoskeletal: gait normal, strength equal bilaterally - Psychiatric Psychiatric: A&O x's 3, appropriate affect, intact judgment & insight - Labs CBC & Chem 7: 09/02/16 07:43 09/02/16 07:43 Labs: Abnormal Lab Results - Last 24 Hours (Table) 09/01/16 09/01/16 Range/Units 07:30 07:30 RBC 3.72 L (4.30-5.90) m/uL Hgb 11.7 L (13.0-17.5) gm/dL Hct 37.2 L (39.0-53.0) % Sodium 136 L (137-145) mmol/L Total Protein 6.2 L (6.3-8.2) g/dL Assessment and Plan Plan: 1. Febrile illness with hypotension, no GI losses noted at this time, Computed tomography scan differential, patient was provided with IV fluids for fluid resuscitation, cultures have been sent, patient was started on IV Levaquin. Cortisol level will be obtained, as he does have chronic dizziness requiring meclizine, orthostatics to be done to evaluate for adrenal sufficiency 2. Hyponatremia, possibly related to poor oral intake, this would be monitored, 2. Hyperlipidemia. on lipitor 3. Chronic pain syndrome. on methadone and norcoand pain stimulator 4. Vitamin D deficiency. on Drisdol supplementation 5. GERD. Protonix 40 mg IV push every 24 hours. 6. History of non-Hodgkin lymphoma over 10 years ago. In remission. 7. History of bleeding peptic ulcer disease, inactive. Continue PPI. 8. DVT prophylaxis. Heparin 5000 units subcutaneously every 12 hours. 9. GI prophylaxis. Continue Protonix 40 mg IV push every 24 hours. Discharge plan: Return home Impression and plan of care have been directed as dictated by the signing physician. Melania Jensen nurse practitioner acting as scribe for signing physician. Time with Patient: Greater than 30
--- NOTE | 2016-09-02 14:31 | P.DS ---
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 with a previous medical history significant for Hodgkin lymphoma about 10 years ago status post chemotherapy, hyperlipidemia, GERD, history of the peptic ulcer disease, complicated by bleeding, chronic low back pain secondary to degenerative disc disease of the thoracic and lumbar spine status post spinal stimulator placement , patient presented to the emergency department at [facility] because of fever dizziness, patient was sick for approximately one day he has had fever 100.5-101, cough with phlegm, orthostasis, apparently the is similarly sick without the fever , patient denies any diarrhea he is chronically constipated, no prior consultation for this problem he was subsequently admitted to the hospital secondary to the hypotension and the lightheadedness and no fever. Sepsis is in the differential however urine Allises and chest x-ray on the evaluation is unremarkable, influenza test is performed and is negative. He does have chronic pain without any changes in his discomfort, no recent foreign travels, no trauma, no ongoing chemotherapy,. He was admitted to the emergency room secondary to hypotension fever and sepsis 09/01: Repeat chest x-ray shows chronic parenchymal changes without new acute pulmonary process. Blood cultures showing no growth at 24 hours. No leukocytosis. 09/02: Please see ST recommendations below based on MBS. Patient will be on augmentin for concern for aspiration but chest x-ray is not showing pneumonia. Sodium at the time of discharge is 137. Patient will be discharged today in stable condition. Discharge diagnoses: 1. Febrile illness with hypotension with concern for aspiration, possible aspiration bronchitis. 2. Hyponatremia, possibly related to poor oral intake 2. Hyperlipidemia. 3. Chronic pain syndrome. 4. Vitamin D deficiency. 5. GERD. 6. History of non-Hodgkin lymphoma over 10 years ago. In remission. 7. History of bleeding peptic ulcer disease, inactive. Discharge plan: Return home Impression and plan of care have been directed as dictated by the signing physician. Melania Jensen nurse practitioner acting as scribe for signing physician. Patient Condition at Discharge: Good Plan - Discharge Summary New Discharge Prescriptions: Amoxic-Pot Clav 875-125Mg [Augmentin 875-125] 1 tab PO Q12HR #14 tablet Discharge Medication List Ergocalciferol [Vitamin D2 (DRISDOL)] 50,000 unit PO Q14D 12/10/14 [History] Ranitidine HCl [Zantac] 300 mg PO QAM 12/10/14 [History] Simvastatin [Zocor] 40 mg PO HS 12/10/14 [History] Hydrocodone/Acetaminophen [Hydrocodon-Acetaminophn 10-325] 1 tab PO Q4H PRN 06/06 [History] ALPRAZolam [Xanax] 0.5 mg PO BID PRN 03/24/16 [History] Loratadine-Pseudoeph 10-240 mg [Claritin-D 24 Hour] 1 tab PO DAILY PRN 03/24/16 [History] Meclizine [Antivert] 12.5 mg PO TID PRN 03/24/16 [History] Methadone [Dolophine] 5 mg PO BID 04/01/16 [History] Amoxic-Pot Clav 875-125Mg [Augmentin 875-125] 1 tab PO Q12HR #14 tablet [Rx] Follow up Appointment(s)/Referral(s): Benny Hendrix MD [Primary Care Provider] - 1 Week Marianela Barillas MD [STAFF PHYSICIAN] - 1 Week Activity/Diet/Wound Care/Special Instructions: Mechanical soft diet with thin liquids, chin tuck, no straws, liquids from cup, small bites and sips, medications in applesauce. Discharge Disposition: HOME SELF-CARE
== END 2016-09-02 14:35 | disposition home or self-care (01) | DRG 206 ==
LOC: EC 22:15 → 5MS5E 08-31 00:49 → OBSVTOIN 08-31 14:17
PROVIDERS: ADMIT Family Medicine; ATTEND Family Medicine
DX: J68.0 Bronchitis and pneumonitis due to chemicals, gases, fumes and vapors (principal); I95.9 Hypotension, unspecified; E87.1 Hypo-osmolality and hyponatremia; M41.9 Scoliosis, unspecified; E86.0 Dehydration; E78.5 Hyperlipidemia, unspecified; G89.4 Chronic pain syndrome; E55.9 Vitamin D deficiency, unspecified; K21.9 Gastro-esophageal reflux disease without esophagitis; F41.9 Anxiety disorder, unspecified; M19.91 Primary osteoarthritis, unspecified site; M51.34 Other intervertebral disc degeneration, thoracic region; Z92.21 Personal history of antineoplastic chemotherapy; Z85.72 Personal history of non-Hodgkin lymphomas; Z87.11 Personal history of peptic ulcer disease; Z88.1 Allergy status to other antibiotic agents; Z88.8 Allergy status to other drugs, medicaments and biological substances; Z87.01 Personal history of pneumonia (recurrent); Z90.49 Acquired absence of other specified parts of digestive tract; Z87.891 Personal history of nicotine dependence; Z96.653 Presence of artificial knee joint, bilateral; Z96.619 Presence of unspecified artificial shoulder joint; Z96.698 Presence of other orthopedic joint implants; Z98.42 Cataract extraction status, left eye; Z98.41 Cataract extraction status, right eye; Z96.1 Presence of intraocular lens; Z79.899 Other long term (current) drug therapy
CPT/HCPCS: 36415; 71020; 74230; 80053; 81001; 82533; 82550; 82553; 83605; 83735; 85025; 87040; 87502; 93005; 96360; 96361; 96365; 99285

== ENCOUNTER 2016-09-12 09:27 | Inpatient (IN) | payer MEDICARE, OTHER ==
[2016-09-12] MEDS ORDERED: SODIUM CHLORIDE 0.9% 500 ML IV STA (09:47)
[2016-09-12] MEDS ORDERED: SODIUM CHLORIDE 0.9% 1,000 ML IV STA (09:47)
[2016-09-12 09:51] LABS: Glucose,Whole Blood 88 mg/dL (75-99)
[2016-09-12 10:19] LABS: Basophils % (A) 1 %; CH 31.7; CHCM 33.4; Eosinophils # (A) 0.1 k/uL (0-0.7); Eosinophils % (A) 1 %; HCT 38.5 % (39.0-53.0); HDW 2.28; HGB 13.2 gm/dL (13.0-17.5); Luc # (Auto) 0.14; Luc % (Auto) 2; Lymphocytes # (A) 1.3 k/uL (1.0-4.8); Lymphocytes % (A) 14 %; MCH 32.7 pg (25.0-35.0); MCHC 34.4 g/dL (31.0-37.0); MCV 95.3 fL (80.0-100.0); Mean Platelet Volume 6.9; Monocytes # (A) 0.4 k/uL (0-1.0); Monocytes % (A) 4 %; Neutrophils # (A) 7.3 k/uL (1.3-7.7); Neutrophils % (A) 79 %; RBC 4.04 m/uL (4.30-5.90); RDW 12.6 % (11.5-15.5); WBC 9.2 k/uL (3.8-10.6); WBC (Perox) 9.41
[2016-09-12 10:24] LABS: ALT 40 U/L (21-72); AST 40 U/L (17-59); Alkaline Phosphatase 73 U/L (38-126); Anion Gap 9 mmol/L; Blood Urea Nitrogen 11 mg/dL (9-20); Calcium 9.4 mg/dL (8.4-10.2); Carbon Dioxide 30 mmol/L (22-30); Chloride 98 mmol/L (98-107); Glucose 93 mg/dL (74-99); Magnesium 2.2 mg/dL (1.6-2.3); Non-African American GFR(MDRD) >60 (>60 ml/min/1.73 sqM); Potassium 4.5 mmol/L (3.5-5.1); Sodium 137 mmol/L (137-145); Total Bilirubin 0.7 mg/dL (0.2-1.3); Total Protein 7.1 g/dL (6.3-8.2)
--- NOTE | 2016-09-12 10:49 | XR ---
EXAMINATION TYPE: XR chest 2V DATE OF EXAM: 09/12/2016 10:44 AM COMPARISON: 08/31/2016 HISTORY: 89-year-old male with cough TECHNIQUE: AP and lateral views FINDINGS: Heart is borderline enlarged with elongation/ectasia of the thoracic aorta. Mild diffuse interstitial prominence. Mild hyperinflation. Spinal stimulator array centered along the spinal canal of the mid to lower thoracic spine. Suggestion of calcified pleural plaques within the upper midlungs. No jonny consolidation or pleural effusion seen. Bilateral shoulder replacements partially seen. IMPRESSION: Chronic changes with calcified pleural plaques suggesting prior asbestos exposure. No definite focal infiltrate seen.
[2016-09-12 10:58] LABS: Troponin I 0.041 ng/mL (0.000-0.034)
--- NOTE | 2016-09-12 11:18 | ED ---
Dizziness HPI - General Chief Complaint: Dizziness Stated Complaint: dizziness, multiple falls Time Seen by Provider: 09/12/16 09:29 Source: patient, family, RN notes reviewed Mode of arrival: wheelchair Limitations: physical limitation - History of Present Illness Initial Comments: This 89-year-old male was brought in by family for evaluation for fall this morning some generalized weakness and dizziness. He denies any pain at this time he does complain of a cough with clear phlegm these has some upper respiratory nasal congestion. Of note his is brought in for similar symptoms at the same time. He denies any fevers chills nausea vomiting sweats focal weakness dysuria. He is stated he was diagnosed with a bacterial infection and was treated for a period he is not sure of the source. MD Complaint: dizziness, lightheadedness - Related Data Home Medications Medication Instructions Recorded Confirmed Ergocalciferol [Vitamin D2 50,000 unit PO Q14D 12/10/14 09/12/16 (DRISDOL)] Ranitidine HCl [Zantac] 300 mg PO QAM 12/10/14 09/12/16 Simvastatin [Zocor] 40 mg PO HS 12/10/14 09/12/16 Hydrocodone/Acetaminophen 1 tab PO Q4H PRN 07/21/15 09/12/16 [Hydrocodon-Acetaminophn 10-325] ALPRAZolam [Xanax] 0.5 mg PO BID PRN 03/24/16 09/12/16 Loratadine-Pseudoeph 10-240 mg 1 tab PO DAILY PRN 03/24/16 09/12/16 [Claritin-D 24 Hour] Meclizine [Antivert] 12.5 mg PO TID PRN 03/24/16 09/12/16 Methadone [Dolophine] 5 mg PO BID 04/01/16 09/12/16 hydrOXYzine PAMOATE [Vistaril] 25 mg PO BID 09/12/16 09/12/16 Allergies Allergy/AdvReac Type Severity Reaction Status Date / Time azithromycin Allergy Intermediate shaky and Verified 09/12/16 09:57 cold, rash and abdominal pain morphine Allergy Intermediate Nausea & Verified 09/12/16 09:57 Vomiting erythromycin base Allergy Mild Rash/Hives Verified 09/12/16 09:57 esomeprazole magnesium Allergy Mild Rash/Hives Verified 09/12/16 09:57 [From Nexium] omeprazole [From Prilosec] Allergy Mild Rash/Hives Verified 09/12/16 09:57 omeprazole magnesium Allergy Mild Rash/Hives Verified 09/12/16 09:57 [From Prilosec] Review of Systems ROS Statement: Those systems with pertinent positive or pertinent negative responses have been documented in the HPI. ROS Other: All systems not noted in ROS Statement are negative. Past Medical History Past Medical History: Cancer, GERD/Reflux, GI Bleed, Hyperlipidemia, Musculoskeletal Disorder, Osteoarthritis (OA), Pneumonia Additional Past Medical History / Comment(s): hx bleeding ulcers, non hodgkins lymphoma, chronic low back pain, scoliosis, unsteady gait, dizzyness, GERD, osteoarthritis. History of Any Multi-Drug Resistant Organisms: None Reported Past Surgical History: Adenoidectomy, Back Surgery, Cholecystectomy, Joint Replacement, Orthopedic Surgery, Tonsillectomy Additional Past Surgical History / Comment(s): 12/15/14 Thoracic laminectomy T11 -12 with placement of nerve stimulator. Bilateral cataracts removed with lens implants, nava knee and shoulder replacements, left hand carpal tunnel, rt thumb joint replacement Past Anesthesia/Blood Transfusion Reactions: No Reported Reaction Past Psychological History: Anxiety Additional Psychological History / Comment(s): Pt resides with his spouse. He is independent with his ADLs. He uses a walker or a cane. He does not drive. His drives him to appt. He has no home care agency. Smoking Status: Former smoker Past Alcohol Use History: None Reported Past Drug Use History: None Reported - Past Family History Father Family Medical History: Cancer Mother Family Medical History: Myocardial Infarction ([place]) Brother(s) Family Medical History: Myocardial Infarction ([place]) Sister(s) Family Medical History: No Reported History Daughter(s) Family Medical History: No Reported History Son(s) Family Medical History: No Reported History General Exam - General Exam Comments Initial Comments: This is a well-developed well-nourished awake alert oriented 3 male Limitations: physical limitation General appearance: alert, in no apparent distress Head exam: Present: atraumatic, normocephalic, normal inspection Eye exam: Present: normal appearance, PERRL, EOMI. Absent: scleral icterus, conjunctival injection, periorbital swelling ENT exam: Present: mucous membranes dry Neck exam: Present: normal inspection. Absent: tenderness, meningismus, lymphadenopathy Respiratory exam: Present: normal lung sounds bilaterally. Absent: respiratory distress, wheezes, rales, rhonchi, stridor Cardiovascular Exam: Present: regular rate, normal rhythm, normal heart sounds. Absent: systolic murmur, diastolic murmur, rubs, gallop, clicks GI/Abdominal exam: Present: soft, normal bowel sounds. Absent: distended, tenderness, guarding, rebound, rigid Extremities exam: Present: normal inspection, full ROM, normal capillary refill. Absent: tenderness, pedal edema, joint swelling, calf tenderness Back exam: Present: normal inspection Neurological exam: Present: alert, oriented X3, CN II-XII intact Psychiatric exam: Present: normal affect, normal mood Skin exam: Present: warm, dry, intact, normal color. Absent: rash Course Vital Signs 09/12/16 09/12/16 09/12/16 09:34 11:18 12:38 Temperature 99.2 F 97.8 F 98.1 F Pulse Rate 89 83 71 Respiratory 20 16 16 Rate Blood Pressure 128/59 133/76 124/65 O2 Sat by Pulse 98 99 100 Oximetry 09/12/16 14:08 Temperature 97.6 F Pulse Rate 72 Respiratory 18 Rate Blood Pressure 144/81 O2 Sat by Pulse 98 Oximetry Medical Decision Making - Medical Decision Making I did discuss findings with the patient and family members. Patient does demonstrate evidence of dehydration weakness in a elevation of the troponin. I did discuss the case with Dr. Green who did come the emergency department see the patient. The patient be admitted for IV hydration and continued monitoring to rule out acute coronary syndrome. I also did address with the family the mild elevation of the carbon monoxide level. He does have carbon monoxide monitors and his house which did not go off his level is 1.6 his 's was higher than this though within the range for smokers oh either patient smokes. They will address this and get the furnace checked. - Lab Data Result diagrams: 09/12/16 10:00 09/12/16 10:00 Lab Results 09/12/16 09/12/16 09/12/16 Range/Units 09:45 10:00 10:00 WBC 9.2 (3.8-10.6) k/uL RBC 4.04 L (4.30-5.90) m/uL Hgb 13.2 (13.0-17.5) gm/dL Hct 38.5 L (39.0-53.0) % MCV 95.3 (80.0-100.0) fL MCH 32.7 (25.0-35.0) pg MCHC 34.4 (31.0-37.0) g/dL RDW 12.6 (11.5-15.5) % Plt Count 261 (150-450) k/uL Neutrophils % 79 % Lymphocytes % 14 % Monocytes % 4 % Eosinophils % 1 % Basophils % 1 % Neutrophils # 7.3 (1.3-7.7) k/uL Lymphocytes # 1.3 (1.0-4.8) k/uL Monocytes # 0.4 (0-1.0) k/uL Eosinophils # 0.1 (0-0.7) k/uL Basophils # 0.0 (0-0.2) k/uL Carbon Monoxide, Quant (<10.0) % Sodium 137 (137-145) mmol/L Potassium 4.5 (3.5-5.1) mmol/L Chloride 98 (98-107) mmol/L Carbon Dioxide 30 (22-30) mmol/L Anion Gap 9 mmol/L BUN 11 (9-20) mg/dL Creatinine 0.77 (0.66-1.25) mg/dL Est GFR (MDRD) Af Amer >60 (>60 ml/min/1.73 sqM) Est GFR (MDRD) Non-Af >60 (>60 ml/min/1.73 sqM) Glucose 93 (74-99) mg/dL POC Glucose (mg/dL) 88 (75-99) mg/dL POC Glu General Neurologist ID Vonda Suero Plasma Lactic Acid Magdi (0.7-2.0) mmol/L Calcium 9.4 (8.4-10.2) mg/dL Magnesium 2.2 (1.6-2.3) mg/dL Total Bilirubin 0.7 (0.2-1.3) mg/dL AST 40 (17-59) U/L ALT 40 (21-72) U/L Alkaline Phosphatase 73 (38-126) U/L Total Creatine Kinase (55-170) U/L CK-MB (CK-2) (0.0-2.4) ng/mL CK-MB (CK-2) Rel Index Troponin I (0.000-0.034) ng/mL Total Protein 7.1 (6.3-8.2) g/dL Albumin 4.1 (3.5-5.0) g/dL Urine Color Urine Appearance (Clear) Urine pH (5.0-8.0) Ur Specific [place] (1.001-1.035) Urine Protein (Negative) Urine Glucose (UA) (Negative) Urine Ketones (Negative) Urine Blood (Negative) Urine Nitrite (Negative) Urine Bilirubin (Negative) Urine Urobilinogen (<2.0) mg/dL Ur Leukocyte Esterase (Negative) Influenza Type A RNA (Not Detectd) Influenza Type B (PCR) (Not Detectd) 09/12/16 09/12/16 09/12/16 Range/Units 10:00 10:00 10:00 WBC (3.8-10.6) k/uL RBC (4.30-5.90) m/uL Hgb (13.0-17.5) gm/dL Hct (39.0-53.0) % MCV (80.0-100.0) fL MCH (25.0-35.0) pg MCHC (31.0-37.0) g/dL RDW (11.5-15.5) % Plt Count (150-450) k/uL Neutrophils % % Lymphocytes % % Monocytes % % Eosinophils % % Basophils % % Neutrophils # (1.3-7.7) k/uL Lymphocytes # (1.0-4.8) k/uL Monocytes # (0-1.0) k/uL Eosinophils # (0-0.7) k/uL Basophils # (0-0.2) k/uL Carbon Monoxide, Quant 1.6 (<10.0) % Sodium (137-145) mmol/L Potassium (3.5-5.1) mmol/L Chloride (98-107) mmol/L Carbon Dioxide (22-30) mmol/L Anion Gap mmol/L BUN (9-20) mg/dL Creatinine (0.66-1.25) mg/dL Est GFR (MDRD) Af Amer (>60 ml/min/1.73 sqM) Est GFR (MDRD) Non-Af (>60 ml/min/1.73 sqM) Glucose (74-99) mg/dL POC Glucose (mg/dL) (75-99) mg/dL POC Glu General Neurologist ID Plasma Lactic Acid Magdi 1.1 (0.7-2.0) mmol/L Calcium (8.4-10.2) mg/dL Magnesium (1.6-2.3) mg/dL Total Bilirubin (0.2-1.3) mg/dL AST (17-59) U/L ALT (21-72) U/L Alkaline Phosphatase (38-126) U/L Total Creatine Kinase 82 (55-170) U/L CK-MB (CK-2) 2.0 (0.0-2.4) ng/mL CK-MB (CK-2) Rel Index 2.4 Troponin I 0.041 H* (0.000-0.034) ng/mL Total Protein (6.3-8.2) g/dL Albumin (3.5-5.0) g/dL Urine Color Urine Appearance (Clear) Urine pH (5.0-8.0) Ur Specific [place] (1.001-1.035) Urine Protein (Negative) Urine Glucose (UA) (Negative) Urine Ketones (Negative) Urine Blood (Negative) Urine Nitrite (Negative) Urine Bilirubin (Negative) Urine Urobilinogen (<2.0) mg/dL Ur Leukocyte Esterase (Negative) Influenza Type A RNA (Not Detectd) Influenza Type B (PCR) (Not Detectd) 09/12/16 09/12/16 Range/Units 10:08 11:16 WBC (3.8-10.6) k/uL RBC (4.30-5.90) m/uL Hgb (13.0-17.5) gm/dL Hct (39.0-53.0) % MCV (80.0-100.0) fL MCH (25.0-35.0) pg MCHC (31.0-37.0) g/dL RDW (11.5-15.5) % Plt Count (150-450) k/uL Neutrophils % % Lymphocytes % % Monocytes % % Eosinophils % % Basophils % % Neutrophils # (1.3-7.7) k/uL Lymphocytes # (1.0-4.8) k/uL Monocytes # (0-1.0) k/uL Eosinophils # (0-0.7) k/uL Basophils # (0-0.2) k/uL Carbon Monoxide, Quant (<10.0) % Sodium (137-145) mmol/L Potassium (3.5-5.1) mmol/L Chloride (98-107) mmol/L Carbon Dioxide (22-30) mmol/L Anion Gap mmol/L BUN (9-20) mg/dL Creatinine (0.66-1.25) mg/dL Est GFR (MDRD) Af Amer (>60 ml/min/1.73 sqM) Est GFR (MDRD) Non-Af (>60 ml/min/1.73 sqM) Glucose (74-99) mg/dL POC Glucose (mg/dL) (75-99) mg/dL POC Glu General Neurologist ID Plasma Lactic Acid Magdi (0.7-2.0) mmol/L Calcium (8.4-10.2) mg/dL Magnesium (1.6-2.3) mg/dL Total Bilirubin (0.2-1.3) mg/dL AST (17-59) U/L ALT (21-72) U/L Alkaline Phosphatase (38-126) U/L Total Creatine Kinase (55-170) U/L CK-MB (CK-2) (0.0-2.4) ng/mL CK-MB (CK-2) Rel Index Troponin I (0.000-0.034) ng/mL Total Protein (6.3-8.2) g/dL Albumin (3.5-5.0) g/dL Urine Color Light Yellow Urine Appearance Clear (Clear) Urine pH 7.0 (5.0-8.0) Ur Specific [place] 1.002 (1.001-1.035) Urine Protein Negative (Negative) Urine Glucose (UA) Negative (Negative) Urine Ketones Negative (Negative) Urine Blood Negative (Negative) Urine Nitrite Negative (Negative) Urine Bilirubin Negative (Negative) Urine Urobilinogen <2.0 (<2.0) mg/dL Ur Leukocyte Esterase Negative (Negative) Influenza Type A RNA Not Detected (Not Detectd) Influenza Type B (PCR) Not Detected (Not Detectd) - Radiology Data Radiology results: report reviewed (Did review the imaging and reports no acute findings.), image reviewed Disposition Clinical Impression: Fall, Dehydration, Elevated troponin Disposition: ADMITTED IP TO THIS HOSP Condition: Stable
[2016-09-12 11:24] LABS: Appearance,Urine Clear (Clear); Bilirubin,Urine Negative (Negative); Glucose,Urine (UA) Negative (Negative); Ketones,Urine Negative (Negative); Leukocyte Esterase,Urine Negative (Negative); Nitrite,Urine Negative (Negative); Protein,Urine Negative (Negative); Specific Gravity,Urine 1.002 (1.001-1.035); UA Billing (MACRO vs. MICRO) CHEM; Urobilinogen,Urine <2.0 mg/dL (<2.0)
[2016-09-12] MEDS ORDERED: HYDROcodone/APAP 10-325MG 1 EACH TAB PO ONE (13:39)
[2016-09-12] MEDS ORDERED: NALOXONE 0.4 MG/ML 1 ML VIAL IV PRN (15:26)
--- NOTE | 2016-09-12 15:26 | ED ---
Medical Decision Making - Lab Data Result diagrams: 09/12/16 10:00 09/12/16 10:00 Lab Results 09/12/16 09/12/16 09/12/16 Range/Units 09:45 10:00 10:00 WBC 9.2 (3.8-10.6) k/uL RBC 4.04 L (4.30-5.90) m/uL Hgb 13.2 (13.0-17.5) gm/dL Hct 38.5 L (39.0-53.0) % MCV 95.3 (80.0-100.0) fL MCH 32.7 (25.0-35.0) pg MCHC 34.4 (31.0-37.0) g/dL RDW 12.6 (11.5-15.5) % Plt Count 261 (150-450) k/uL Neutrophils % 79 % Lymphocytes % 14 % Monocytes % 4 % Eosinophils % 1 % Basophils % 1 % Neutrophils # 7.3 (1.3-7.7) k/uL Lymphocytes # 1.3 (1.0-4.8) k/uL Monocytes # 0.4 (0-1.0) k/uL Eosinophils # 0.1 (0-0.7) k/uL Basophils # 0.0 (0-0.2) k/uL Carbon Monoxide, Quant (<10.0) % Sodium 137 (137-145) mmol/L Potassium 4.5 (3.5-5.1) mmol/L Chloride 98 (98-107) mmol/L Carbon Dioxide 30 (22-30) mmol/L Anion Gap 9 mmol/L BUN 11 (9-20) mg/dL Creatinine 0.77 (0.66-1.25) mg/dL Est GFR (MDRD) Af Amer >60 (>60 ml/min/1.73 sqM) Est GFR (MDRD) Non-Af >60 (>60 ml/min/1.73 sqM) Glucose 93 (74-99) mg/dL POC Glucose (mg/dL) 88 (75-99) mg/dL POC Glu Dumpling Machine Operator ID Vonda Suero Plasma Lactic Acid Magdi (0.7-2.0) mmol/L Calcium 9.4 (8.4-10.2) mg/dL Magnesium 2.2 (1.6-2.3) mg/dL Total Bilirubin 0.7 (0.2-1.3) mg/dL AST 40 (17-59) U/L ALT 40 (21-72) U/L Alkaline Phosphatase 73 (38-126) U/L Total Creatine Kinase (55-170) U/L CK-MB (CK-2) (0.0-2.4) ng/mL CK-MB (CK-2) Rel Index Troponin I (0.000-0.034) ng/mL Total Protein 7.1 (6.3-8.2) g/dL Albumin 4.1 (3.5-5.0) g/dL Urine Color Urine Appearance (Clear) Urine pH (5.0-8.0) Ur Specific [place] (1.001-1.035) Urine Protein (Negative) Urine Glucose (UA) (Negative) Urine Ketones (Negative) Urine Blood (Negative) Urine Nitrite (Negative) Urine Bilirubin (Negative) Urine Urobilinogen (<2.0) mg/dL Ur Leukocyte Esterase (Negative) Influenza Type A RNA (Not Detectd) Influenza Type B (PCR) (Not Detectd) 09/12/16 09/12/16 09/12/16 Range/Units 10:00 10:00 10:00 WBC (3.8-10.6) k/uL RBC (4.30-5.90) m/uL Hgb (13.0-17.5) gm/dL Hct (39.0-53.0) % MCV (80.0-100.0) fL MCH (25.0-35.0) pg MCHC (31.0-37.0) g/dL RDW (11.5-15.5) % Plt Count (150-450) k/uL Neutrophils % % Lymphocytes % % Monocytes % % Eosinophils % % Basophils % % Neutrophils # (1.3-7.7) k/uL Lymphocytes # (1.0-4.8) k/uL Monocytes # (0-1.0) k/uL Eosinophils # (0-0.7) k/uL Basophils # (0-0.2) k/uL Carbon Monoxide, Quant 1.6 (<10.0) % Sodium (137-145) mmol/L Potassium (3.5-5.1) mmol/L Chloride (98-107) mmol/L Carbon Dioxide (22-30) mmol/L Anion Gap mmol/L BUN (9-20) mg/dL Creatinine (0.66-1.25) mg/dL Est GFR (MDRD) Af Amer (>60 ml/min/1.73 sqM) Est GFR (MDRD) Non-Af (>60 ml/min/1.73 sqM) Glucose (74-99) mg/dL POC Glucose (mg/dL) (75-99) mg/dL POC Glu Dumpling Machine Operator ID Plasma Lactic Acid Magdi 1.1 (0.7-2.0) mmol/L Calcium (8.4-10.2) mg/dL Magnesium (1.6-2.3) mg/dL Total Bilirubin (0.2-1.3) mg/dL AST (17-59) U/L ALT (21-72) U/L Alkaline Phosphatase (38-126) U/L Total Creatine Kinase 82 (55-170) U/L CK-MB (CK-2) 2.0 (0.0-2.4) ng/mL CK-MB (CK-2) Rel Index 2.4 Troponin I 0.041 H* (0.000-0.034) ng/mL Total Protein (6.3-8.2) g/dL Albumin (3.5-5.0) g/dL Urine Color Urine Appearance (Clear) Urine pH (5.0-8.0) Ur Specific [place] (1.001-1.035) Urine Protein (Negative) Urine Glucose (UA) (Negative) Urine Ketones (Negative) Urine Blood (Negative) Urine Nitrite (Negative) Urine Bilirubin (Negative) Urine Urobilinogen (<2.0) mg/dL Ur Leukocyte Esterase (Negative) Influenza Type A RNA (Not Detectd) Influenza Type B (PCR) (Not Detectd) 09/12/16 09/12/16 Range/Units 10:08 11:16 WBC (3.8-10.6) k/uL RBC (4.30-5.90) m/uL Hgb (13.0-17.5) gm/dL Hct (39.0-53.0) % MCV (80.0-100.0) fL MCH (25.0-35.0) pg MCHC (31.0-37.0) g/dL RDW (11.5-15.5) % Plt Count (150-450) k/uL Neutrophils % % Lymphocytes % % Monocytes % % Eosinophils % % Basophils % % Neutrophils # (1.3-7.7) k/uL Lymphocytes # (1.0-4.8) k/uL Monocytes # (0-1.0) k/uL Eosinophils # (0-0.7) k/uL Basophils # (0-0.2) k/uL Carbon Monoxide, Quant (<10.0) % Sodium (137-145) mmol/L Potassium (3.5-5.1) mmol/L Chloride (98-107) mmol/L Carbon Dioxide (22-30) mmol/L Anion Gap mmol/L BUN (9-20) mg/dL Creatinine (0.66-1.25) mg/dL Est GFR (MDRD) Af Amer (>60 ml/min/1.73 sqM) Est GFR (MDRD) Non-Af (>60 ml/min/1.73 sqM) Glucose (74-99) mg/dL POC Glucose (mg/dL) (75-99) mg/dL POC Glu Dumpling Machine Operator ID Plasma Lactic Acid Magdi (0.7-2.0) mmol/L Calcium (8.4-10.2) mg/dL Magnesium (1.6-2.3) mg/dL Total Bilirubin (0.2-1.3) mg/dL AST (17-59) U/L ALT (21-72) U/L Alkaline Phosphatase (38-126) U/L Total Creatine Kinase (55-170) U/L CK-MB (CK-2) (0.0-2.4) ng/mL CK-MB (CK-2) Rel Index Troponin I (0.000-0.034) ng/mL Total Protein (6.3-8.2) g/dL Albumin (3.5-5.0) g/dL Urine Color Light Yellow Urine Appearance Clear (Clear) Urine pH 7.0 (5.0-8.0) Ur Specific [place] 1.002 (1.001-1.035) Urine Protein Negative (Negative) Urine Glucose (UA) Negative (Negative) Urine Ketones Negative (Negative) Urine Blood Negative (Negative) Urine Nitrite Negative (Negative) Urine Bilirubin Negative (Negative) Urine Urobilinogen <2.0 (<2.0) mg/dL Ur Leukocyte Esterase Negative (Negative) Influenza Type A RNA Not Detected (Not Detectd) Influenza Type B (PCR) Not Detected (Not Detectd) Disposition Clinical Impression: Fall, Dehydration, Elevated troponin, Weakness generalized Disposition: ADMITTED IP TO THIS [facility] Condition: Stable Referrals: Benny Hendrix MD [Primary Care Provider] - 1-2 days Decision Time: 13:15
[2016-09-12] MEDS ORDERED: LORATADINE-PSEUDOEPH 5-120 MG 1 EACH TAB.ER.12H PO PRN (15:29)
[2016-09-12] MEDS ORDERED: ALPRAZolam 0.5 MG TAB PO PRN (15:29)
[2016-09-12] MEDS ORDERED: MECLIZINE 12.5 MG TAB PO PRN (15:29)
[2016-09-12] MEDS ORDERED: HYDROcodone/APAP 10-325MG 1 EACH TAB PO PRN (15:29)
[2016-09-12] MEDS ORDERED: NITROGLYCERIN SL TABS 0.4 MG TAB SUBLINGUAL PRN (15:29)
[2016-09-12] MEDS ORDERED: HEPARIN SODIUM,PORCINE 5,000 UNIT/ML 1 ML VIAL IV ONE (15:31)
[2016-09-12] MEDS ORDERED: HEPARIN SODIUM,PORCINE/D5W PMX 25,000 UNIT in DEXTROSE/WATER 1 500ML.BAG IV SCH (15:45)
--- NOTE | 2016-09-12 16:24 | P.HPIM ---
History of Present Illness H&P Date: 09/12/16 Chief Complaint: Generalized weakness, fall, elevated troponin This is an 89-year-old male one of Dr. Hendrix with a previous medical history significant for Hodgkin lymphoma about 10 years ago status post chemotherapy, hyperlipidemia, GERD, history of the peptic ulcer disease, complicated by bleeding, chronic low back pain secondary to degenerative disc disease of the thoracic and lumbar spine status post spinal stimulator placement , patient presented to the emergency department at [facility] because of generalized weakness and recurrent falls over the last 24 hours with increased low back pain, patient was found to have a slight bump in the troponin that is not specific however because of his age and because of the risk factor patient was admitted to the hospital for evaluation and cardiology consultation was obtained. Patient brought his as well with similar symptoms including headache as well as recurrent falls and not eating or drinking much, her carbon monoxide was elevated at 2.1 however his was around 1.6. Patient was hospitalized at [facility] from 08/31/2069 until 2016 after he was admitted for acute febrile illness with possible aspiration pneumonia and he was discharged on Augmentin twice every day for one week, patient was supposed to follow-up with Dr. Hendrix as an outpatient however he could not make a follow-up appointment because there was no appointment made and he ended up coming to the ER today with the above complaint. Review of Systems Constitutional: Reports chronic headaches, Reports chronic pain, Reports fatigue , Reports weakness, Reports weight loss, Denies anorexia, Denies lethargy, Denies malaise, Denies sweats, Denies weight gain Eyes: denies blurred vision, denies bulging eye, denies decreased vision Ears: bilateral: decreased hearing Ears, nose, mouth and throat: Denies dysphagia, Denies neck lump, Denies sore throat, Denies vertigo Cardiovascular: Reports dyspnea on exertion, Denies chest pain, Denies high blood pressure, Denies phlebitis, Denies rapid heart beat, Denies shortness of breath, Denies syncope Respiratory: Denies congestion, Denies cough, Denies cough with sputum, Denies home oxygen, Denies sleep apnea, Denies snoring, Denies wheezing Gastrointestinal: Reports change in bowel habits, Reports constipation, Denies abdominal pain, Denies bloating, Denies BRBPR, Denies early satiety, Denies excessive gas, Denies heartburn, Denies melena, Denies nausea, Denies vomiting Genitourinary: Reports nocturia, Denies dysuria Musculoskeletal: Reports atrophy, Reports frequent falls, Reports gait dysfunction, Reports low back pain Musculoskeletal: absent: ankle pain, ankle stiffness, ankle swelling, elbow pain , elbow stiffness, elbow swelling, foot pain, foot stiffness, foot swelling, hand pain, hand stiffness, hand swelling, hip pain, hip stiffness, hip swelling , knee pain, knee stiffness, knee swelling, shoulder pain, shoulder stiffness, shoulder swelling, wrist pain, wrist stiffness, wrist swelling Integumentary: Denies pruritus, Denies rash Neurological: Denies numbness, Denies weakness Psychiatric: Denies anxiety, Denies depression Endocrine: Denies fatigue, Denies weight change Past Medical History Past Medical History: Cancer, GERD/Reflux, GI Bleed, Hyperlipidemia, Musculoskeletal Disorder, Osteoarthritis (OA), Pneumonia Additional Past Medical History / Comment(s): hx bleeding ulcers, non hodgkins lymphoma, chronic low back pain, scoliosis, unsteady gait, dizzyness, GERD, osteoarthritis. History of Any Multi-Drug Resistant Organisms: None Reported Past Surgical History: Adenoidectomy, Back Surgery, Cholecystectomy, Joint Replacement, Orthopedic Surgery, Tonsillectomy Additional Past Surgical History / Comment(s): 12/15/14 Thoracic laminectomy T11 -12 with placement of nerve stimulator. Bilateral cataracts removed with lens implants, nava knee and shoulder replacements, left hand carpal tunnel, rt thumb joint replacement Past Anesthesia/Blood Transfusion Reactions: No Reported Reaction Past Psychological History: Anxiety Additional Psychological History / Comment(s): Pt resides with his spouse. He is independent with his ADLs. He uses a walker or a cane. He does not drive. His drives him to appt. He has no home care agency. Smoking Status: Former smoker Past Alcohol Use History: None Reported Past Drug Use History: None Reported - Past Family History Father Family Medical History: Cancer (Father at age of 70 from bladder cancer.) Mother Family Medical History: [place]ocardial Infarction ([place]) (Mother at age of 59 from [place]) Brother(s) Family Medical History: [place]ocardial [place]ar[place]) (Patient had one brother who from [place]) Sister(s) Family Medical History: No Reported History (Patient has 2 sisters alive no major medical problems) Daughter(s) Family Medical History: No Reported History (Patient has 3 daughters no major medical problems) Son(s) Family Medical History: No Reported History (Patient has one son no major medical problems) Medications and Allergies Home Medications Medication Instructions Recorded Confirmed Type Ergocalciferol [Vitamin D2 50,000 unit PO Q14D 12/10/14 09/12/16 History (DRISDOL)] Ranitidine HCl [Zantac] 300 mg PO QAM 12/10/14 09/12/16 History Simvastatin [Zocor] 40 mg PO HS 12/10/14 09/12/16 History Hydrocodone/Acetaminophen 1 tab PO Q4H PRN 07/21/15 09/12/16 History [Hydrocodon-Acetaminophn 10-325] ALPRAZolam [Xanax] 0.5 mg PO BID PRN 03/24/16 09/12/16 History Loratadine-Pseudoeph 10-240 mg 1 tab PO DAILY PRN 03/24/16 09/12/16 History [Claritin-D 24 Hour] Meclizine [Antivert] 12.5 mg PO TID PRN 03/24/16 09/12/16 History Methadone [Dolophine] 5 mg PO BID 04/01/16 09/12/16 History hydrOXYzine PAMOATE [Vistaril] 25 mg PO BID 09/12/16 09/12/16 History Allergies Allergy/AdvReac Type Severity Reaction Status Date / Time azithromycin Allergy Intermediate shaky and Verified 09/12/16 09:57 cold, rash and abdominal pain morphine Allergy Intermediate Nausea & Verified 09/12/16 09:57 Vomiting erythromycin base Allergy Mild Rash/Hives Verified 09/12/16 09:57 esomeprazole magnesium Allergy Mild Rash/Hives Verified 09/12/16 09:57 [From Nexium] omeprazole [From Prilosec] Allergy Mild Rash/Hives Verified 09/12/16 09:57 omeprazole magnesium Allergy Mild Rash/Hives Verified 09/12/16 09:57 [From Prilosec] Physical Exam - Constitutional General appearance: no acute distress - EENT Eyes: anicteric sclerae, EOMI, PERRLA, no ptosis, no scleral icterus, normal appearance ENT: hard of hearing, normal oropharynx, no thrush Ears: bilateral: normal - Neck Neck: no lymphadenopathy, normal ROM, no rigidity, no stridor, no thyromegaly Carotids: bilateral: upstroke delayed Thyroid: bilateral: normal size - Respiratory Respiratory: bilateral: diminished, negative: dullness, rales, rhonchi, wheezing , prolonged expiration - Cardiovascular Rhythm: regular Heart sounds: normal: S1, S2 Abnormal Heart Sounds: systolic murmur, no S3 Gallop, no S4 Gallop, no click - Gastrointestinal General gastrointestinal: normal bowel sounds, soft, no splenomegaly, no tenderness, no umbilical hernia, no ventral hernia - Integumentary Integumentary: normal, normal turgor - Neurologic Neurologic: CNII-XII intact - Musculoskeletal Musculoskeletal: generalized weakness, strength equal bilaterally - Psychiatric Psychiatric: A&O x's 3, appropriate affect, intact judgment & insight Results CBC & Chem 7: 09/12/16 10:00 09/12/16 10:00 Thrombosis Risk Factor Assmnt - DVT/VTE Prophylaxis DVT/VTE Prophylaxis: Pharmacologic Prophylaxis ordered, Mechanical Prophylaxis ordered Assessment and Plan Plan: Assessment and plan: 1. Generalized weakness with recurrent falls and mild elevation of troponin. That is not specific. Patient was admitted to the hospital he will be monitored for the next 24 hours, cardiac enzymes will be done 3, patient does not have any angina at this point in time, he was started on heparin drip, he would be seen in consultation by cardiology, we will continue to monitor the patient very closely. 2. Hyperlipidemia. Continue simvastatin 40 mg at bedtime or Lipitor 20 mg orally bedtime. 3. Chronic pain syndrome. Continue methadone 5 mg orally twice every day as well as [place] for breakthrough pain. 4. Vitamin D deficiency. Continue Drisdol 50,000 units once every 2 weeks. 5. GERD. Continue current PPI. 6. History of non-Hodgkin lymphoma. In remission. 7. History of bleeding peptic ulcer disease. Continue PPI. 8. DVT prophylaxis. Currently on heparin drip. 9. GI prophylaxis. PPI. 10. Admitted to inpatient, estimate length of stay 2 midnights.
[2016-09-12] MEDS: SODIUM CHLORIDE 0.9% 1,000 ML IV SCH (17:29)
[2016-09-12] MEDS ORDERED: MAGNESIUM HYDROXIDE 2,400 MG/10 ML CUP PO PRN (18:00)
[2016-09-12] MEDS: ATORVASTATIN 20 MG TAB PO SCH (20:02)
[2016-09-12] MEDS: hydrOXYzine PAMOATE 25 MG CAP PO SCH (20:02)
[2016-09-12] MEDS: METHADONE 5 MG TAB PO SCH (20:02)
[2016-09-12] MEDS: SENNOSIDES-DOCUSATE SODIUM 1 EACH TAB PO SCH (20:03)
[2016-09-13 06:36] LABS: Basophils % (A) 1 %; CH 31.2; CHCM 31.9; Eosinophils # (A) 0.1 k/uL (0-0.7); Eosinophils % (A) 4 %; HCT 35.4 % (39.0-53.0); HDW 2.11; HGB 11.9 gm/dL (13.0-17.5); Luc # (Auto) 0.11; Luc % (Auto) 3; Lymphocytes # (A) 1.6 k/uL (1.0-4.8); Lymphocytes % (A) 43 %; MCHC 33.6 g/dL (31.0-37.0); Mean Platelet Volume 6.8; Monocytes # (A) 0.3 k/uL (0-1.0); Monocytes % (A) 7 %; Neutrophils # (A) 1.6 k/uL (1.3-7.7); Neutrophils % (A) 43 %; RBC 3.61 m/uL (4.30-5.90); RDW 12.6 % (11.5-15.5); WBC 3.8 k/uL (3.8-10.6)
[2016-09-13] MEDS: SODIUM CHLORIDE 0.9% 1,000 ML IV SCH (06:38)
[2016-09-13 07:05] LABS: ALT 34 U/L (21-72); AST 36 U/L (17-59); Alkaline Phosphatase 56 U/L (38-126); Anion Gap 6 mmol/L; Blood Urea Nitrogen 8 mg/dL (9-20); Calcium 8.9 mg/dL (8.4-10.2); Carbon Dioxide 29 mmol/L (22-30); Chloride 103 mmol/L (98-107); Glucose 84 mg/dL (74-99); Non-African American GFR(MDRD) >60 (>60 ml/min/1.73 sqM); Potassium 4.1 mmol/L (3.5-5.1); Sodium 138 mmol/L (137-145); Total Bilirubin 0.6 mg/dL (0.2-1.3)
[2016-09-13] MEDS: METHADONE 5 MG TAB PO SCH ×2 (08:47→20:10)
[2016-09-13] MEDS: hydrOXYzine PAMOATE 25 MG CAP PO SCH ×2 (08:48→20:09)
[2016-09-13] MEDS: SENNOSIDES-DOCUSATE SODIUM 1 EACH TAB PO SCH ×2 (08:49→20:10)
[2016-09-13] MEDS: FAMOTIDINE 20 MG TAB PO SCH (08:49)
[2016-09-13] MEDS: POLYETHYLENE GLYCOL 3350 17 GM POWD.PACK PO SCH (08:50)
--- NOTE | 2016-09-13 12:13 | P.PN ---
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 with a previous medical history significant for Hodgkin lymphoma about 10 years ago status post chemotherapy, hyperlipidemia, GERD, history of the peptic ulcer disease, complicated by bleeding, chronic low back pain secondary to degenerative disc disease of the thoracic and lumbar spine status post spinal stimulator placement , patient presented to the emergency department at [facility] because of generalized weakness and recurrent falls over the last 24 hours with increased low back pain, patient was found to have a slight bump in the troponin that is not specific however because of his age and because of the risk factor patient was admitted to the hospital for evaluation and cardiology consultation was obtained. Patient brought his as well with similar symptoms including headache as well as recurrent falls and not eating or drinking much, her carbon monoxide was elevated at 2.1 however his was around 1.6. Patient was hospitalized at [facility] from 08/31/2069 until 2016 after he was admitted for acute febrile illness with possible aspiration pneumonia and he was discharged on Augmentin twice every day for one week, patient was supposed to follow-up with Dr. Hendrix as an outpatient however he could not make a follow-up appointment because there was no appointment made and he ended up coming to the ER today with the above complaint. 09/13: Patient states he is feeling better from yesterday. He has had stool softeners, milk of magnesia, MiraLAX and has not had a bowel movement and is concerned. He is having a cough with clear sputum. IV fluids will be changed to saline lock. Heparin drip will be discontinued. Cardiology is on consult for troponins which have been 0.041, 0.042, 0.043, 0.043. Patient did not present with chest pain. Objective - Vital Signs Vital signs: Vital Signs Temp 99.2 F 09/13/16 04:00 Pulse 64 09/13/16 04:00 Resp 16 09/13/16 04:00 BP 114/59 09/13/16 04:00 Pulse Ox 94 L 09/13/16 04:00 Intake & Output 09/12/16 09/13/16 09/13/16 18:59 06:59 18:59 Intake Total 120 973.825 126.163 Output Total 1775 Balance 120 -801.175 126.163 Weight 118.5 kg 52.9 kg Intake: Intake, IV Titration 973.825 126.163 Amount Heparin Sodium,Porcine/ 93.825 126.163 D5w Pmx 25,000 unit In Dextrose/Water 1 500ml. bag @ 12 UNITS/KG/HR 12. 51 mls/hr IV .Q24H FRANK Rx #:[id number] Sodium Chloride 0.9% 1, 880 000 ml @ 80 mls/hr IV . [id number] FRANK Rx#:[id number] Oral 120 Output: Urine 1775 Other: # Voids 0 1 # Bowel Movements 0 - Exam General appearance: no acute distress - EENT Eyes: anicteric sclerae, EOMI, PERRLA, no ptosis, no scleral icterus, normal appearance ENT: hard of hearing, normal oropharynx, no thrush Ears: bilateral: normal - Neck Neck: no lymphadenopathy, normal ROM, no rigidity, no stridor, no thyromegaly Carotids: bilateral: upstroke delayed Thyroid: bilateral: normal size - Respiratory Respiratory: bilateral: diminished, negative: dullness, rales, rhonchi, wheezing , prolonged expiration - Cardiovascular Rhythm: regular Heart sounds: normal: S1, S2 Abnormal Heart Sounds: systolic murmur, no S3 Gallop, no S4 Gallop, no click - Gastrointestinal General gastrointestinal: normal bowel sounds, soft, no splenomegaly, no tenderness, no umbilical hernia, no ventral hernia - Integumentary Integumentary: normal, normal turgor - Neurologic Neurologic: CNII-XII intact - Musculoskeletal Musculoskeletal: generalized weakness, strength equal bilaterally - Psychiatric Psychiatric: A&O x's 3, appropriate affect, intact judgment & insight - Labs CBC & Chem 7: 09/13/16 05:52 09/13/16 05:52 Labs: Abnormal Lab Results - Last 24 Hours (Table) 09/12/16 09/12/16 09/12/16 Range/Units 16:26 22:22 22:22 RBC (4.30-5.90) m/uL Hgb (13.0-17.5) gm/dL Hct (39.0-53.0) % APTT 39.1 H (22.0-30.0) sec BUN (9-20) mg/dL Troponin I 0.042 H* 0.043 H* (0.000-0.034) ng/mL Total Protein (6.3-8.2) g/dL Albumin (3.5-5.0) g/dL 09/13/16 09/13/16 09/13/16 Range/Units 05:52 05:52 05:52 RBC 3.61 L (4.30-5.90) m/uL Hgb 11.9 L (13.0-17.5) gm/dL Hct 35.4 L (39.0-53.0) % APTT (22.0-30.0) sec BUN 8 L (9-20) mg/dL Troponin I 0.043 H* (0.000-0.034) ng/mL Total Protein 6.0 L (6.3-8.2) g/dL Albumin 3.2 L (3.5-5.0) g/dL 09/13/16 Range/Units 05:52 RBC (4.30-5.90) m/uL Hgb (13.0-17.5) gm/dL Hct (39.0-53.0) % APTT 43.2 H (22.0-30.0) sec BUN (9-20) mg/dL Troponin I (0.000-0.034) ng/mL Total Protein (6.3-8.2) g/dL Albumin (3.5-5.0) g/dL Assessment and Plan Plan: 1. Generalized weakness with recurrent falls and mild elevation of troponin. That is not specific. Patient was admitted to the hospital he will be monitored for the next 24 hours, cardiac enzymes will be done 3, patient does not have any angina at this point in time, he was started on heparin drip and discontinued, he would be seen in consultation by cardiology, we will continue to monitor the patient very closely. 2. Hyperlipidemia. Continue simvastatin 40 mg at bedtime or Lipitor 20 mg orally bedtime. 3. Chronic pain syndrome. Continue methadone 5 mg orally twice every day as well as [place] for breakthrough pain. 4. Vitamin D deficiency. Continue Drisdol 50,000 units once every 2 weeks. 5. GERD. Continue current PPI. 6. History of non-Hodgkin lymphoma. In remission. 7. History of bleeding peptic ulcer disease. Continue PPI. 8. DVT prophylaxis. Currently on heparin drip. 9. GI prophylaxis. PPI. 10. Admitted to inpatient, estimate length of stay 2 midnights. Discharge plan: Subacute rehab Impression and plan of care have been directed as dictated by the signing physician. Melania Jensen nurse practitioner acting as scribe for signing physician. Time with Patient: Greater than 30
--- NOTE | 2016-09-13 13:44 | P.CRDCN ---
History of Present Illness Consult date: 09/13/16 Requesting physician: Benny Hendrix Reason for Consult (text): Abnormal troponin Chief complaint: Generalized weakness and fall History of present illness: Is a pleasant 89-year-old gentleman with prior history of hyperlipidemia, Hodgkin's lymphoma 10 years ago, status post chemotherapy, GERD , chronic back pain, he presented to the emergency room after experiencing a fall at home. Patient has also been generally quite weak at home. His is actually also admitted, she is in the second bed answering most of his questions. His apparently has been falling at home, and he has been assisting her, on this occasion he actually had a fall himself. Patient was recently in the hospital, discharged on the of this month after he was admitted with acute febrile illness and evidence of pneumonia. Radiology consultation was requested because of abnormal troponin values. Patient denies having any chest discomfort, no evidence of any syncope. There was suspicion of a possible carbon monoxide poisoning. Carbon monoxide level on admission 1.6. EKG on admission showed a normal sinus rhythm with no acute changes. Chest x-ray revealed chronic changes with calcified pleural plaques suggesting prior asbestos exposure. Labratory data, hemoglobin 13.2 on admission, 11.9 this morning. Potassium 4.1, BUN 8, creatinine 0.7, Mag level 2.2. Troponins 0.041,.042,.043,.043. Influenza A and B-. Blood pressure 132/60, heart rate in the 60s. Patient was noted to have a low-grade temperature of 99.2. Past Medical History Past Medical History: Cancer, GERD/Reflux, GI Bleed, Hyperlipidemia, Musculoskeletal Disorder, Osteoarthritis (OA), Pneumonia Additional Past Medical History / Comment(s): hx bleeding ulcers, non hodgkins lymphoma, chronic low back pain, scoliosis, unsteady gait, dizzyness, GERD, osteoarthritis. History of Any Multi-Drug Resistant Organisms: None Reported Past Surgical History: Adenoidectomy, Back Surgery, Cholecystectomy, Joint Replacement, Orthopedic Surgery, Tonsillectomy Additional Past Surgical History / Comment(s): 12/15/14 Thoracic laminectomy T11 -12 with placement of nerve stimulator. Bilateral cataracts removed with lens implants, nava knee and shoulder replacements, left hand carpal tunnel, rt thumb joint replacement Past Anesthesia/Blood Transfusion Reactions: No Reported Reaction Past Psychological History: Anxiety Additional Psychological History / Comment(s): Pt resides with his spouse. He is independent with his ADLs. He uses a walker or a cane. He does not drive. His drives him to appt. He has no home care agency. Smoking Status: Former smoker Past Alcohol Use History: None Reported Past Drug Use History: None Reported - Past Family History Father Family Medical History: Cancer (Father at age of 70 from bladder cancer.) Mother Family Medical History: Myocardial Infarction ([place]) (Mother at age of 59 from [place]) Brother(s) Family Medical History: Myocardial Infarction ([place]) (Patient had one brother who from [place]) Sister(s) Family Medical History: No Reported History (Patient has 2 sisters alive no major medical problems) Daughter(s) Family Medical History: No Reported History (Patient has 3 daughters no major medical problems) Son(s) Family Medical History: No Reported History (Patient has one son no major medical problems) Medications and Allergies Home Medications Medication Instructions Recorded Confirmed Type Ergocalciferol [Vitamin D2 50,000 unit PO Q14D 12/10/14 09/12/16 History (ANIKET)] Ranitidine HCl [Zantac] 300 mg PO QAM 12/10/14 09/12/16 History Simvastatin [Zocor] 40 mg PO HS 12/10/14 09/12/16 History Hydrocodone/Acetaminophen 1 tab PO Q4H PRN 07/21/15 09/12/16 History [Hydrocodon-Acetaminophn 10-325] ALPRAZolam [Xanax] 0.5 mg PO BID PRN 03/24/16 09/12/16 History Loratadine-Pseudoeph 10-240 mg 1 tab PO DAILY PRN 03/24/16 09/12/16 History [Claritin-D 24 Hour] Meclizine [Antivert] 12.5 mg PO TID PRN 03/24/16 09/12/16 History Methadone [Dolophine] 5 mg PO BID 04/01/16 09/12/16 History hydrOXYzine PAMOATE [Vistaril] 25 mg PO BID 09/12/16 09/12/16 History Allergies Allergy/AdvReac Type Severity Reaction Status Date / Time azithromycin Allergy Intermediate shaky and Verified 09/12/16 09:57 cold, rash and abdominal pain morphine Allergy Intermediate Nausea & Verified 09/12/16 09:57 Vomiting erythromycin base Allergy Mild Rash/Hives Verified 09/12/16 09:57 esomeprazole magnesium Allergy Mild Rash/Hives Verified 09/12/16 09:57 [From Nexium] omeprazole [From Prilosec] Allergy Mild Rash/Hives Verified 09/12/16 09:57 omeprazole magnesium Allergy Mild Rash/Hives Verified 09/12/16 09:57 [From Prilosec] Physical Exam Vitals: Vital Signs Temp Pulse Pulse Resp BP Pulse Ox 09/13/16 08:00 97.1 F L 60 66 18 132/63 93 L 09/13/16 04:00 99.2 F 64 16 114/59 94 L 09/13/16 00:00 68 09/12/16 23:27 68 14 121/58 96 09/12/16 20:00 60 09/12/16 19:53 97.5 F L 60 14 123/58 97 09/12/16 16:20 97.5 F L 54 L 16 117/70 96 09/12/16 16:18 97.8 F 54 L 16 117/70 97 Intake and Output 09/12/16 09/13/16 09/13/16 22:59 06:59 14:59 Intake Total 120 973.825 246.163 Output Total 1775 1050 Balance 120 -801.175 -803.837 Intake: Intake, IV Titration 973.825 126.163 Amount Heparin Sodium,Porcine/ 93.825 126.163 D5w Pmx 25,000 unit In Dextrose/Water 1 500ml. bag @ 12 UNITS/KG/HR 12. 51 mls/hr IV .Q24H FRANK Rx #:[id number] Sodium Chloride 0.9% 1, 880 000 ml @ 80 mls/hr IV . [id number] FRANK Rx#:[id number] Oral 120 120 Output: Urine 1775 1050 Other: Voiding Method Toilet # Voids 0 1 1 # Bowel Movements 0 0 Weight 118.5 kg 52.9 kg 52.9 kg Patient Weight 09/14/16 06:59 Weight 52.9 kg PHYSICAL EXAMINATION: HEENT: Head is atraumatic, normocephalic. Pupils equal, round. Neck is supple. There is no elevated jugular venous pressure. HEART EXAMINATION: S1 and S2 systolic murmur heard. CHEST EXAMINATION: Lungs are clear to auscultation and precussion. No chest wall tenderness is noted on palpation or with deep breathing. ABDOMEN: Soft, nontender. Bowel sounds are heard. No organomegaly noted. EXTREMITIES: 2+ peripheral pulses with no evidence of peripheral edema and no calf tenderness noted. NEUROLOGIC patient is awake, alert and oriented -3. . Results 09/13/16 05:52 09/13/16 05:52 Cardiac Enzymes 09/12/16 09/12/16 09/13/16 Range/Units 16:26 22:22 05:52 AST (17-59) U/L Troponin I 0.042 H* 0.043 H* 0.043 H* (0.000-0.034) ng/mL 09/13/16 Range/Units 05:52 AST 36 (17-59) U/L Troponin I (0.000-0.034) ng/mL Coagulation 09/12/16 09/13/16 Range/Units 22:22 05:52 APTT 39.1 H 43.2 H (22.0-30.0) sec CBC 09/13/16 Range/Units 05:52 WBC 3.8 (3.8-10.6) k/uL RBC 3.61 L (4.30-5.90) m/uL Hgb 11.9 L (13.0-17.5) gm/dL Hct 35.4 L (39.0-53.0) % Plt Count 234 (150-450) k/uL Comprehensive Metabolic Panel 09/13/16 Range/Units 05:52 Sodium 138 (137-145) mmol/L Potassium 4.1 (3.5-5.1) mmol/L Chloride 103 (98-107) mmol/L Carbon Dioxide 29 (22-30) mmol/L BUN 8 L (9-20) mg/dL Creatinine 0.77 (0.66-1.25) mg/dL Glucose 84 (74-99) mg/dL Calcium 8.9 (8.4-10.2) mg/dL AST 36 (17-59) U/L ALT 34 (21-72) U/L Alkaline Phosphatase 56 (38-126) U/L Total Protein 6.0 L (6.3-8.2) g/dL Albumin 3.2 L (3.5-5.0) g/dL Current Medications Generic Name Dose Route Start Last Admin Trade Name Freq PRN Reason Stop Dose Admin Hydrocodone Bitart/Acetaminophen 1 each 09/12/16 15:29 09/13/16 08:49 [place] 10 PO 1 each Q4H PRN Administration Moderate Pain Alprazolam 0.5 mg 09/12/16 15:29 Xanax PO BID PRN Anxiety Atorvastatin Calcium 20 mg 09/12/16 21:00 09/12/16 20:02 Lipitor PO 20 mg HS FRANK Administration Ergocalciferol 50,000 unit 09/24/16 12:00 Vitamin D2 PO Q14D FRANK Famotidine 40 mg 09/13/16 09:00 09/13/16 08:49 Pepcid PO 40 mg QAM FRANK Administration Hydroxyzine Pamoate 25 mg 09/12/16 21:00 09/13/16 08:48 Vistaril PO 25 mg BID FRANK Administration Loratadine/Pseudoephedrine Sulfate 2 each 09/12/16 15:29 Claritin-D 12 Hr PO DAILY PRN Allergy Symptoms Magnesium Hydroxide 2,400 mg 09/12/16 18:00 Milk Of Magnesia PO DAILY PRN Constipation Meclizine HCl 12.5 mg 09/12/16 15:29 Antivert PO TID PRN Vertigo Methadone HCl 5 mg 09/12/16 21:00 09/13/16 08:47 Dolophine PO 5 mg BID FRANK Administration Naloxone HCl 0.2 mg 09/12/16 15:26 Narcan IV Q2M PRN Opioid Reversal Nitroglycerin 0.4 mg 09/12/16 15:29 Nitrostat SUBLINGUAL Q5M PRN Chest Pain Polyethylene Glycol 17 gm 09/13/16 09:00 09/13/16 08:50 Miralax PO 17 gm DAILY FRANK Administration Senna/Docusate Sodium 2 each 09/12/16 21:00 09/13/16 08:49 Senokot-S PO 2 each BID FRANK Administration Intake and Output 09/12/16 09/13/16 09/13/16 22:59 06:59 14:59 Intake Total 120 973.825 246.163 Output Total 1775 1050 Balance 120 -801.175 -803.837 Intake: Intake, IV Titration 973.825 126.163 Amount Heparin Sodium,Porcine/ 93.825 126.163 D5w Pmx 25,000 unit In Dextrose/Water 1 500ml. bag @ 12 UNITS/KG/HR 12. 51 mls/hr IV .Q24H FRANK Rx #:[id number] Sodium Chloride 0.9% 1, 880 000 ml @ 80 mls/hr IV . [id number] FRANK Rx#:[id number] Oral 120 120 Output: Urine 1775 1050 Other: Voiding Method Toilet # Voids 0 1 1 # Bowel Movements 0 0 Weight 118.5 kg 52.9 kg 52.9 kg Patient Weight 09/14/16 06:59 Weight 52.9 kg 09/13/16 05:52 09/13/16 05:52 EKG Interpretations (text) EKG shows a normal sinus rhythm with no acute changes. Assessment and Plan Plan: Assessment and plan #1 generalized weakness with episode of fall. No clear-cut evidence of syncope. #2 abnormal troponin, not consistent with acute coronary syndrome, likely secondary to oxygen supply and demand mismatch. #3 hyperlipidemia #4 chronic back pain #5 history of non-Hodgkin lymphoma, in remission. Plan Obtain an echocardiogram with Doppler study. Continue you statin. Add a baby aspirin to his medication regime. Patient's heart rate is in the low 60s, we' ll defer from the addition of beta pillo at this time. Further recommendations to follow. DNP note has been reviewed, I agree with a documented findings and plan of care. Patient was seen and examined.
[2016-09-13] MEDS: cycloSPORINE 0.05% OPHTH 0.4 ML DROPERETTE BOTH EYES SCH ×2 (14:29→20:05)
[2016-09-13] MEDS: ATORVASTATIN 20 MG TAB PO SCH (20:05)
[2016-09-14] MEDS: cycloSPORINE 0.05% OPHTH 0.4 ML DROPERETTE BOTH EYES SCH ×2 (08:11→21:13)
[2016-09-14] MEDS: ASPIRIN 81 MG CHEW PO SCH (08:11)
[2016-09-14] MEDS: FAMOTIDINE 20 MG TAB PO SCH (08:12)
[2016-09-14] MEDS: POLYETHYLENE GLYCOL 3350 17 GM POWD.PACK PO SCH (08:12)
[2016-09-14] MEDS: METHADONE 5 MG TAB PO SCH ×2 (08:18→21:13)
[2016-09-14] MEDS: SENNOSIDES-DOCUSATE SODIUM 1 EACH TAB PO SCH ×2 (08:18→22:50)
[2016-09-14] MEDS: hydrOXYzine PAMOATE 25 MG CAP PO SCH ×2 (08:19→22:50)
--- NOTE | 2016-09-14 10:01 | ECHOF ---
Referral Reason:abn trop MEASUREMENTS -------- HEIGHT: 170.2 cm WEIGHT: 52.6 kg BP: 114/60 RVIDd: 2.2 cm (< 3.3) IVSd: 1.4 cm (0.6 - 1.1) LVIDd: 4.6 cm (3.9 - 5.3) LVPWd: 1.4 cm (0.6 - 1.1) IVSs: 1.7 cm LVIDs: 3.4 cm LVPWs: 1.7 cm LA Diam: 3.3 cm (2.7 - 3.8) LAESV Index (A-L): 29.72 ml/m Ao Diam: 3.4 cm (2.0 - 3.7) AV Cusp: 2.4 cm (1.5 - 2.6) MV EXCURSION: 11.280 mm (> 18.000) MV EF SLOPE: 57 mm/s (70 - 150) EPSS: 0.8 cm MV E Jamari: 1.11 m/s MV DecT: 251 ms MV A Jamari: 0.88 m/s MV E/A Ratio: 1.26 FINDINGS -------- Sinus rhythm with extra systolic beats. This was a technically good study. The left ventricular size is normal. There is moderate concentric left ventricular hypertrophy. Overall left ventricular systolic function is normal with, an EF between 60 - 65 %. The right ventricle is normal in size and function. LA is midly dilated 29-33ml/m2. The right atrium is normal in size. There is mild aortic valve sclerosis. Trace to mild aortic regurgitation. The mitral valve leaflets are mildly thickened. Mild mitral annular calcification present. Mild mitral regurgitation is present. No regurgitation noted Trace/mild (physiologic) pulmonic regurgitation. The aortic root size is normal. Normal inferior vena cava with normal inspiratory collapse consistent with estimated right atrial pressure of 5 mmHg. The pericardium is normal. CONCLUSIONS -------- 1. Sinus rhythm with extra systolic beats. 2. Trace to mild aortic regurgitation. 3. The mitral valve leaflets are mildly thickened. 4. Mild mitral annular calcification present. 5. Mild mitral regurgitation is present. 6. No regurgitation noted 7. Trace/mild (physiologic) pulmonic regurgitation. 8. The aortic root size is normal. 9. Normal inferior vena cava with normal inspiratory collapse consistent with estimated right atrial pressure of 5 mmHg. 10. The pericardium is normal. 11. This was a technically good study. 12. The left ventricular size is normal. 13. There is moderate concentric left ventricular hypertrophy. 14. Overall left ventricular systolic function is normal with, an EF between 60 - 65 %. 15. The right ventricle is normal in size and function. 16. LA is midly dilated 29-33ml/m2. 17. The right atrium is normal in size. 18. There is mild aortic valve sclerosis. BLANKET WINDER HELPER: Sherly Btuler RDCS
[2016-09-14 10:45] VITALS: BMI 18.3
--- NOTE | 2016-09-14 12:53 | P.PN ---
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 Patient brought his as well with similar symptoms including headache as well as recurrent falls and not eating or drinking much, her carbon monoxide was elevated at 2.1 however his was around 1.6. Patient was hospitalized at [facility] from 08/31/2069 until 2016 after he was admitted for acute febrile illness with possible aspiration pneumonia and he was discharged on Augmentin twice every day for one week, patient was supposed to follow-up with Dr. Hendrix as an outpatient however he could not make a follow-up appointment because there was no appointment made and he ended up coming to the ER today with the above complaint. 09/13: Patient states he is feeling better from yesterday. He has had stool softeners, milk of magnesia, MiraLAX and has not had a bowel movement and is concerned. He is having a cough with clear sputum. IV fluids will be changed to saline lock. Heparin drip will be discontinued. Cardiology is on consult for troponins which have been 0.041, 0.042, 0.043, 0.043. Patient did not present with chest pain. 09/14: Blood culture showing no growth. He has been afebrile. He is feeling improvement in general. Physical therapy is working with him. Plan to transfer to [facility] floor today. [facility] tomorrow. Objective - Vital Signs Vital signs: Vital Signs Temp 98.5 F 09/14/16 08:00 Pulse 73 09/14/16 08:00 Resp 16 09/14/16 08:00 BP 102/59 09/14/16 08:00 Pulse Ox 94 L 09/14/16 08:00 Intake & Output 04/09/14/16 09/14/16 18:59 06:59 18:59 Intake Total 486.163 120 Output Total 1800 Balance -1313.837 120 Weight 52.9 kg 53.2 kg 53.2 kg Intake: Intake, IV Titration 126.163 Amount Heparin Sodium,Porcine/ 126.163 D5w Pmx 25,000 unit In Dextrose/Water 1 500ml. bag @ 12 UNITS/KG/HR 12. 51 mls/hr IV .Q24H FRANK Rx #:[id number] Oral 360 120 Output: Urine 1800 Other: Voiding Method Toilet Toilet Toilet # Voids 1 1 # Bowel Movements 0 - Exam General appearance: no acute distress - EENT Eyes: anicteric sclerae, EOMI, PERRLA, no ptosis, no scleral icterus, normal appearance ENT: hard of hearing, normal oropharynx, no thrush Ears: bilateral: normal - Neck Neck: no lymphadenopathy, normal ROM, no rigidity, no stridor, no thyromegaly Carotids: bilateral: upstroke delayed Thyroid: bilateral: normal size - Respiratory Respiratory: bilateral: diminished, negative: dullness, rales, rhonchi, wheezing , prolonged expiration - Cardiovascular Rhythm: regular Heart sounds: normal: S1, S2 Abnormal Heart Sounds: systolic murmur, no S3 Gallop, no S4 Gallop, no click - Gastrointestinal General gastrointestinal: normal bowel sounds, soft, no splenomegaly, no tenderness, no umbilical hernia, no ventral hernia - Integumentary Integumentary: normal, normal turgor - Neurologic Neurologic: CNII-XII intact - Musculoskeletal Musculoskeletal: generalized weakness, strength equal bilaterally - Psychiatric Psychiatric: A&O x's 3, appropriate affect, intact judgment & insight - Labs CBC & Chem 7: 09/13/16 05:52 09/13/16 05:52 Assessment and Plan Plan: 1. Generalized weakness with recurrent falls and mild elevation of troponin. Consultation by cardiology, we will continue to monitor the patient very closely. 2. Hyperlipidemia. Continue simvastatin 40 mg at bedtime or Lipitor 20 mg orally bedtime. 3. Chronic pain syndrome. Continue methadone 5 mg orally twice every day as well as [place] for breakthrough pain. 4. Vitamin D deficiency. Continue Drisdol 50,000 units once every 2 weeks. 5. GERD. Continue current PPI. 6. History of non-Hodgkin lymphoma. In remission. 7. History of bleeding peptic ulcer disease. Continue PPI. 8. DVT prophylaxis. Currently on heparin drip. 9. GI prophylaxis. PPI. 10. Admitted to inpatient, estimate length of stay 2 midnights. Discharge plan: [facility] Impression and plan of care have been directed as dictated by the signing physician. Melania Jensen nurse practitioner acting as scribe for signing physician. Time with Patient: Greater than 30
[2016-09-14] MEDS: ATORVASTATIN 20 MG TAB PO SCH (21:13)
[2016-09-14 23:01] VITALS: RESP 18; TEMP 97.8
[2016-09-15] MEDS: POLYETHYLENE GLYCOL 3350 17 GM POWD.PACK PO SCH (07:46)
[2016-09-15] MEDS: cycloSPORINE 0.05% OPHTH 0.4 ML DROPERETTE BOTH EYES SCH (07:46)
[2016-09-15] MEDS: FAMOTIDINE 20 MG TAB PO SCH (07:47)
[2016-09-15] MEDS: ASPIRIN 81 MG CHEW PO SCH (07:47)
[2016-09-15] MEDS: SENNOSIDES-DOCUSATE SODIUM 1 EACH TAB PO SCH ×2 (07:47→07:54)
[2016-09-15] MEDS: hydrOXYzine PAMOATE 25 MG CAP PO SCH (07:48)
[2016-09-15] MEDS: METHADONE 5 MG TAB PO SCH (07:50)
[2016-09-15 07:59] VITALS: BP 138/64; PULSE 64
[2016-09-15 08:05] LABS: CH 31.4; CHCM 32.1; HCT 37.7 % (39.0-53.0); HDW 2.05; HGB 12.3 gm/dL (13.0-17.5); MCH 32.1 pg (25.0-35.0); MCHC 32.7 g/dL (31.0-37.0); MCV 98.3 fL (80.0-100.0); Mean Platelet Volume 7.3; RBC 3.84 m/uL (4.30-5.90); RDW 12.8 % (11.5-15.5); WBC 5.9 k/uL (3.8-10.6)
[2016-09-15 08:21] LABS: ALT 32 U/L (21-72); AST 35 U/L (17-59); Alkaline Phosphatase 58 U/L (38-126); Anion Gap 8 mmol/L; Blood Urea Nitrogen 20 mg/dL (9-20); Calcium 9.4 mg/dL (8.4-10.2); Carbon Dioxide 30 mmol/L (22-30); Chloride 99 mmol/L (98-107); Glucose 101 mg/dL (74-99); Non-African American GFR(MDRD) >60 (>60 ml/min/1.73 sqM); Potassium 4.5 mmol/L (3.5-5.1); Sodium 137 mmol/L (137-145); Total Bilirubin 0.6 mg/dL (0.2-1.3); Total Protein 6.6 g/dL (6.3-8.2)
--- NOTE | 2016-09-15 10:54 | P.DS ---
Providers Date of admission: 09/12/16 15:27 Expected date of discharge: 09/15/16 Attending physician: Jose Green Consults: 09/13/16 09:15 Consult Physician Routine Consulting Provider: Jamil Wells Consult Reason/Comments: elevated trops Do you want consulting provider notified?: Yes Primary care physician: [facility] Course: This is an 89-year-old male one of Dr. Hendrix with a previous medical history significant for Hodgkin lymphoma about 10 years ago status post chemotherapy, hyperlipidemia, GERD, history of the peptic ulcer disease, complicated by bleeding, chronic low back pain secondary to degenerative disc disease of the thoracic and lumbar spine status post spinal stimulator placement , patient presented to the emergency department at [facility] because of generalized weakness and recurrent falls over the last 24 hours with increased low back pain, patient was found to have a slight bump in the troponin that is not specific however because of his age and because of the risk factor patient was admitted to the hospital for evaluation and cardiology consultation was obtained. Patient brought his as well with similar symptoms including headache as well as recurrent falls and not eating or drinking much, her carbon monoxide was elevated at 2.1 however his was around 1.6. Patient was hospitalized at [facility] from 08/31/2069 until 2016 after he was admitted for acute febrile illness with possible aspiration pneumonia and he was discharged on Augmentin twice every day for one week, patient was supposed to follow-up with Dr. Hendrix as an outpatient however he could not make a follow-up appointment because there was no appointment made and he ended up coming to the ER today with the above complaint. 09/13: Patient states he is feeling better from yesterday. He has had stool softeners, milk of magnesia, MiraLAX and has not had a bowel movement and is concerned. He is having a cough with clear sputum. IV fluids will be changed to saline lock. Heparin drip will be discontinued. Cardiology is on consult for troponins which have been 0.041, 0.042, 0.043, 0.043. Patient did not present with chest pain. 09/14: Blood culture showing no growth. He has been afebrile. He is feeling improvement in general. Physical therapy is working with him. Plan to transfer to [facility] floor today. [facility] tomorrow. 09/15: Patient has been hemodynamically stable. He is afebrile. He has been working well with physical therapy. Patient will be discharged to [facility] today in stable condition. Patient will be amenable [place] under the care of Dr. Green. Discharge diagnoses: 1. Generalized weakness with recurrent falls and mild elevation of troponin. Acute coronary syndrome ruled out. 2. Hyperlipidemia. 3. Chronic pain syndrome. 4. Vitamin D deficiency. 5. GERD. 6. History of non-Hodgkin lymphoma. In remission. 7. History of bleeding peptic ulcer disease. Discharge plan: [facility] Impression and plan of care have been directed as dictated by the signing physician. Melania Jensen nurse practitioner acting as scribe for signing physician. Patient Condition at Discharge: Good Plan - Discharge Summary New Discharge Prescriptions: ALPRAZolam [Xanax] 0.5 mg PO BID PRN #60 tab PRN Reason: Anxiety HYDROcodone/APAP 10-325MG [[place] 10-325] 1 each PO Q4H PRN #100 tab PRN Reason: Moderate Pain Methadone [Dolophine] 5 mg PO BID #60 tab Propylene Glycol/Peg 400/Pf [Systane 0.3-0.4% Eye Drops] 1 dropper BOTH EYES TID #1 applicator Discharge Medication List Ergocalciferol [Vitamin D2 (DRISDOL)] 50,000 unit PO Q14D 12/10/14 [History] Ranitidine HCl [Zantac] 300 mg PO QAM 12/10/14 [History] Simvastatin [Zocor] 40 mg PO HS 12/10/14 [History] Hydrocodone/Acetaminophen [Hydrocodon-Acetaminophn 10-325] 1 tab PO Q4H PRN 06/06 [History] Loratadine-Pseudoeph 10-240 mg [Claritin-D 24 Hour] 1 tab PO DAILY PRN 03/24/16 [History] Meclizine [Antivert] 12.5 mg PO TID PRN 03/24/16 [History] hydrOXYzine PAMOATE [Vistaril] 25 mg PO BID 09/12/16 [History] ALPRAZolam [Xanax] 0.5 mg PO BID PRN #60 tab 09/15/16 [Rx] Aspirin 81 mg PO DAILY chew 09/15/16 [Rx] HYDROcodone/APAP 10-325MG [[place]ora 10-325] 1 each PO Q4H PRN #100 tab 09/15/16 [Rx ] Magnesium Hydroxide [Milk of Magnesia Concentrate] 2,400 mg PO DAILY PRN #0 ml 09/15/16 [Rx] Methadone [Dolophine] 5 mg PO BID #60 tab 09/15/16 [Rx] Polyethylene Glycol 3350 [Miralax] 17 gm PO DAILY powd.pack 09/15/16 [Rx] Propylene Glycol/Peg 400/Pf [Systane 0.3-0.4% Eye Drops] 1 dropper BOTH EYES TID #1 applicator 09/15/16 [Rx] Sennosides-Docusate Sodium [Senokot-S] 2 each PO BID tab 09/15/16 [Rx] Follow up Appointment(s)/Referral(s): Benny Hendrix MD [Primary Care Provider] - 1 Week (After discharge from [facility])
[2016-09-24] MEDS ORDERED: ERGOCALCIFEROL 50,000 UNIT CAP PO SCH (12:00)
== END 2016-09-15 16:00 | DRG 948 ==
LOC: EC 09:27 → 6SEL 15:27 → 5MS5E 09-14 17:18
PROVIDERS: ADMIT Internal Medicine; ATTEND Internal Medicine
DX: R53.1 Weakness (principal); M41.9 Scoliosis, unspecified; E86.0 Dehydration; E55.9 Vitamin D deficiency, unspecified; E78.5 Hyperlipidemia, unspecified; R29.6 Repeated falls; G89.4 Chronic pain syndrome; K21.9 Gastro-esophageal reflux disease without esophagitis; M51.36 Other intervertebral disc degeneration, lumbar region; M19.91 Primary osteoarthritis, unspecified site; M51.34 Other intervertebral disc degeneration, thoracic region; Z85.72 Personal history of non-Hodgkin lymphomas; Z87.11 Personal history of peptic ulcer disease; Z92.21 Personal history of antineoplastic chemotherapy; Z90.49 Acquired absence of other specified parts of digestive tract; Z98.42 Cataract extraction status, left eye; Z98.41 Cataract extraction status, right eye; Z96.1 Presence of intraocular lens; Z96.653 Presence of artificial knee joint, bilateral; Z96.612 Presence of left artificial shoulder joint; Z96.611 Presence of right artificial shoulder joint; Z96.691 Finger-joint replacement of right hand; Z87.891 Personal history of nicotine dependence; F41.9 Anxiety disorder, unspecified; Z79.899 Other long term (current) drug therapy; Z88.1 Allergy status to other antibiotic agents; Z88.5 Allergy status to narcotic agent; Z88.8 Allergy status to other drugs, medicaments and biological substances; W19.XXXA Unspecified fall, initial encounter; Y92.009 Unspecified place in unspecified non-institutional (private) residence as the place of occurrence of the external cause
CPT/HCPCS: 36415; 71020; 80053; 81003; 82375; 82550; 82553; 83605; 83735; 84484; 85025; 85027; 85730; 87040; 87502; 93005; 93306